=== PATIENT | male | born 1940 | race African-American/Black ===

== ENCOUNTER 2020-05-02 15:38 | Inpatient (IN) | payer MEDICARE, OTHER ==
[~2020-05-02] VITALS: Ht 180.3 cm; Wt 77.1 kg
[~2020-05-02 15:38] MED LIST: COMBIGAN EYE DRO5 ML OP; FINASTERIDE5 MG ORAL; FLOMAX0.4 MG ORAL; HYTRIN2 MG PO; LEVAQUIN500 MG ORAL; LUMIGAN2.5 ML BOTH EYES; METOPROLOL TART50 MG ORAL; PROTONIX40 MG ORAL
--- NOTE | 2020-05-02 15:43 | Emergency Room Report ---
History of Present Illness General Chief Complaint: Upper Respiratory Illness Source: Patient Present Illness HPI Disclaimer: Please note that this report is being documented using [employer] technology. This can lead to erroneous entry secondary to incorrect interpretation by the dictating instrument. HPI: 80-year-old male presents from home due to shortness of breath. He reports shortness of breath since this morning. Associated with a chronic cough. No vomiting, no diarrhea, no fever. No sick contacts. Currently lives in a skilled nursing. He has a history of hypertension and glaucoma, legally blind however is not been on medications for some time. PMH: Hypertension, glaucoma PSH: Reviewed Social Hx: Former smoker former drinker Allergies: Coded Allergies: NO KNOWN ALLERGIES (Unverified Allergy, Unknown, 10/13/15) COVID-19 Screening Contact w/high risk pt: No Experienced COVID-19 symptoms?: Yes COVID-19 Testing performed SENIOR RESEARCH MANAGER: No Patient History Reviewed Nursing Documentation: PMH: Agreed; PSxH: Agreed Nursing Documentation-PMH Hx Hypertension: Yes Hx Cancer: No Hx Gastrointestinal Problems: No Hx Neurological Problems: No Review of Systems All Other Systems: negative except mentioned in HPI Physical Exam Vital Signs Date Time Temp Pulse Resp B/P (MAP) Pulse Ox O2 Delivery O2 Flow Rate FiO2 05/02/20 15:31 97.0 89 18 185/85 (118) 98 Room Air Sp02 EP Interpretation: reviewed, normal General Appearance: well appearing, no apparent distress Head: normocephalic, atraumatic Eyes: bilateral eye PERRL, bilateral eye EOMI ENT: hearing grossly normal, moist mucus membranes Neck: full range of motion, supple Respiratory: lungs clear, normal breath sounds, no rhonchi, no respiratory distress, no retraction, no wheezing Cardiovascular #1: normal peripheral pulses, regular rate, rhythm, no murmur Gastrointestinal: non tender, soft, non-distended, no guarding Neurologic: alert, oriented x3, no focal defects Skin: normal color, warm/dry Medical Decision Making Diagnostic Impression: Primary Impression: Community acquired pneumonia Additional Impression: Uncontrolled hypertension ER Course MDM: Differential diagnosis included but not limited to CHF, pneumonia, asthma, bronchitis to name a few Clinical course-IV inserted, laboratory studies and EKG chest x-ray ordered. Chest x-ray showed possible retrocardiac infiltrate. Patient was borderline hypoxic in the ER at 93% on room air. I did give azithromycin and Rocephin. Troponin was negative. BNP mildly elevated. Patient's blood pressure elevated throughout his ER stay requiring antihypertensives. He states he has been noncompliant with medication for many years. Will admit patient to the medical floor for further treatment. Labs - Laboratory Tests Test 05/02/20 17:45 White Blood Count 12.8 K/UL (4.8-10.8) H Red Blood Count 5.41 M/UL (4.70-6.10) Hemoglobin 16.9 G/DL (14.2-18.0) Hematocrit 52.8 % (42.0-52.0) H Mean Corpuscular Volume 97 FL (80-99) Mean Corpuscular Hemoglobin 31.2 PG (27.0-31.0) H Mean Corpuscular Hemoglobin Concent 32.0 G/DL (32.0-36.0) Red Cell Distribution Width 12.7 % (11.6-14.8) Platelet Count 162 K/UL (150-450) Mean Platelet Volume 12.2 FL (6.5-10.1) H Neutrophils (%) (Auto) % (45.0-75.0) Lymphocytes (%) (Auto) % (20.0-45.0) Monocytes (%) (Auto) % (1.0-10.0) Eosinophils (%) (Auto) % (0.0-3.0) Basophils (%) (Auto) % (0.0-2.0) Differential Total Cells Counted 100 Neutrophils % (Manual) 93 % (45-75) H Lymphocytes % (Manual) 5 % (20-45) L Monocytes % (Manual) 2 % (1-10) Eosinophils % (Manual) 0 % (0-3) Basophils % (Manual) 0 % (0-2) Band Neutrophils 0 % (0-8) Platelet Estimate Adequate Platelet Morphology Normal Red Blood Cell Morphology Normal Sodium Level 140 MMOL/L (136-145) Potassium Level 4.4 MMOL/L (3.5-5.1) Chloride Level 103 MMOL/L (98-107) Carbon Dioxide Level 26 MMOL/L (21-32) Anion Gap 11 mmol/L (5-15) Blood Urea Nitrogen 10 mg/dL (7-18) Creatinine 1.3 MG/DL (0.55-1.30) Estimated Glomerular Filtration Rate > 60 mL/min (>60) Glucose Level 144 MG/DL (74-106) H Calcium Level 9.1 MG/DL (8.5-10.1) Total Bilirubin 0.5 MG/DL (0.2-1.0) Aspartate Amino Transferase (AST) 19 U/L (15-37) Alanine Aminotransferase (ALT) 22 U/L (12-78) Alkaline Phosphatase 76 U/L (46-116) Troponin I 0.000 ng/mL (0.000-0.056) Pro-B-Type Natriuretic Peptide 363 pg/mL (0-125) H Total Protein 7.9 G/DL (6.4-8.2) Albumin 4.0 G/DL (3.4-5.0) Globulin 3.9 g/dL Albumin/Globulin Ratio 1.0 (1.0-2.7) Microbiology Date/Time Source Procedure Growth Status 05/02/20 16:10 Nasopharynx SARS-CoV-2 RdRp Gene Assay - Final Complete On reevaluation: Patient in no acute distress. Plan-admission to the medical floor Rhythm Strip Diag. Results EP Interpretation: yes Rate: 105 Rhythm: other - Sinus tachycardia Chest X-Ray Diagnostic Results Chest X-Ray Diagnostic Results : Chest X-Ray Ordered: Yes # of Views/Limited/Complete: 1 View Indication: Shortness of Breath EP Interpretation: Yes Interpretation: no effusion, no pneumothorax, other - Retrocardiac infiltrate Last Vital Signs Date Time Temp Pulse Resp B/P (MAP) Pulse Ox O2 Delivery O2 Flow Rate FiO2 05/02/20 15:31 97.0 89 18 185/85 (118) 98 Room Air Status: improved Disposition: ADMITTED INPATIENT Condition: Serious Niranjan Arreola M.D. May 02, 2020 15:43
[2020-05-02 15:50] VITALS: BP 185/85
[2020-05-02] MEDS ORDERED: Nitroglycerin 2% oint pkt TOPIC ONE (16:45)
[2020-05-02 17:20] VITALS: BP 192/91
[2020-05-02] MEDS ORDERED: Azithromycin 500 MG in NS 275 ML IV ONE (17:30)
[2020-05-02] MEDS ORDERED: cefTRIAXone 1 GM in NS 55 ML IVPB ONE (17:30)
[2020-05-02 18:02] LABS: ANION GAP 11 mmol/L (5-15); BLOOD UREA NITROGEN 10 mg/dL (7-18); CALCIUM 9.1 MG/DL (8.5-10.1); CARBON DIOXIDE 26 MMOL/L (21-32); CHLORIDE 103 MMOL/L (98-107); CREATININE 1.3 MG/DL (0.55-1.30); POTASSIUM 4.4 MMOL/L (3.5-5.1); SODIUM 140 MMOL/L (136-145)
[2020-05-02 18:07] LABS: HEMATOCRIT 52.8 % (42.0-52.0); HEMOGLOBIN 16.9 G/DL (14.2-18.0); MEAN CORPUSCULAR VOLUME 97 FL (80-99); PLATELET COUNT 162 K/UL (150-450); RED BLOOD COUNT 5.41 M/UL (4.70-6.10); RED CELL DISTRIBUTION WIDTH 12.7 % (11.6-14.8); WHITE BLOOD COUNT 12.8 K/UL (4.8-10.8)
[2020-05-02 18:13] LABS: ALANINE AMINOTRANSFERASE 22 U/L (12-78); ALKALINE PHOSPHATASE 76 U/L (46-116); ASPARTATE AMINO TRANSFERASE 19 U/L (15-37); BILIRUBIN,TOTAL 0.5 MG/DL (0.2-1.0)
[2020-05-02 18:28] VITALS: BP 173/88
[2020-05-02 19:27] VITALS: BP 177/82
[2020-05-02 20:23] VITALS: BP 132/64
[2020-05-02] MEDS: Enoxaparin 40mg Inj SUBQ SCH (21:59)
--- NOTE | 2020-05-02 22:25 | History and Physical ---
History of Present Illness General Date patient seen: May 02, 2020 Time patient seen: 22:20 Reason for Hospitalization: Upper Respiratory Illness, community acquired pneumonia Present Illness HPI This is a 80 year old gentleman with a history of HTN, glaucoma, who [facility] from a [facility] with 1 day's duration of shortness of breath. The patient says he has not seen a physician in 2 years and has not taken any medications for that time either. At baseline he is independently ambulatory with a cane. He is independent with activities of daily living and no longer has a caregiver. He has been in his usual state of health until today, when he started to notice shortness of breath as well as a productive cough. He had associated fevers and chills during this time also. He otherwise denied chest pain, chest pressure, abdominal pain, nausea, vomiting, diarrhea, leg swelling, weakness, paresthesias, new vision changes. He denied travel or anyone else around him being sick. The patient then presented to the ED. There, he was noted to be afebrile and hemodynamically stable and had saturation of 93% on room air so was started on 2L NC. A chest x-ray showed possible retrocardiac infiltrate and he was started on treatment for presumed community acquired pneumonia with Azithromycin and Ceftriaxone. His BNP was mildly elevated and his EKG/troponin were reassuring for ACS. He was then admitted for further management. Allergies: Coded Allergies: NO KNOWN ALLERGIES (Unverified Allergy, Unknown, 10/13/15) COVID-19 Screening Contact w/high risk pt: No Recent Travel to affected area: No Experienced COVID-19 symptoms?: Yes COVID-19 symptoms experienced: Shortness of Breath, Cough, Flu-Like Symptoms Medication History No Active Prescriptions or Reported Meds Medications Narrative Does not take any medications for over 2 years Patient History History Provided By: Patient Healthcare decision maker Teresa Busby sister [phone] or [phone] Resuscitation status FULL CODE Advanced Directive on File Past Medical/Surgical History Past Medical/Surgical History: (1) Glaucoma (2) HTN (hypertension) Family History Family History: Patient reports no known family medical history. Social History Social History: (1) Quit smoking Review of Systems Constitutional: Reports: chills, fever, malaise Eye: Reports: other - blindness, chronic from [place] ENT: Denies: ear discharge, nose pain, nose congestion Respiratory: Reports: cough, shortness of breath, RICH, sputum; Denies: orthopnea, stridor, wheezing Cardiovascular: Denies: chest pain, edema, palpitations, syncope Gastrointestinal: Denies: abdominal pain, constipation, nausea, vomiting, melena, hematemesis Genitourinary: Denies: discharge, dysuria, frequency Musculoskeletal: Denies: gout, joint pain Skin: Denies: rash Psychiatric: Denies: anxiety Neurological: Denies: headache, numbness, paresthesia, focal weakness Endocrine: Denies: excessive sweating, intolerance to temperature, increased thirst, increased urine Hematologic/Lymphatic: Denies: blood clots, easy bleeding, easy bruising All Other Systems: negative except mentioned in HPI Physical Exam General Appearance: WD/WN, no apparent distress, alert Lines, tubes and drains: peripheral HEENT: normocephalic, atraumatic, mucous membranes moist, PERRL Neck: non-tender, normal alignment, supple, normal inspection Respiratory/Chest: chest wall non-tender, lungs clear, normal breath sounds, no respiratory distress Cardiovascular/Chest: normal peripheral pulses, normal rate, regular rhythm, no gallop/murmur, no JVD Abdomen: normal bowel sounds, non tender, soft, no mass Genitourinary/Rectal: normal genital exam Extremities: no edema Skin Exam: normal pigmentation, warm/dry Neurologic: computer repair technician II-XII grossly normal, alert, oriented x 3, responsive Last 24 Hour Vital Signs Date Time Temp Pulse Resp B/P (MAP) Pulse Ox O2 Delivery O2 Flow Rate FiO2 05/02/20 20:59 98.0 95 18 133/76 99 Nasal Cannula 2.0 05/02/20 20:23 97.6 82 20 132/64 99 Room Air 05/02/20 19:27 97.5 85 20 177/82 99 Room Air 05/02/20 19:20 176/88 05/02/20 18:28 97.2 89 19 173/88 99 Room Air 05/02/20 17:25 192/91 05/02/20 17:20 97.5 82 17 192/91 98 Room Air 05/02/20 16:58 186/89 05/02/20 15:50 89 18 Room Air 05/02/20 15:50 97.0 89 18 185/85 98 Room Air 05/02/20 15:31 97.0 89 18 185/85 (118) 98 Room Air Laboratory Tests Test 05/02/20 17:45 White Blood Count 12.8 K/UL (4.8-10.8) H Red Blood Count 5.41 M/UL (4.70-6.10) Hemoglobin 16.9 G/DL (14.2-18.0) Hematocrit 52.8 % (42.0-52.0) H Mean Corpuscular Volume 97 FL (80-99) Mean Corpuscular Hemoglobin 31.2 PG (27.0-31.0) H Mean Corpuscular Hemoglobin Concent 32.0 G/DL (32.0-36.0) Red Cell Distribution Width 12.7 % (11.6-14.8) Platelet Count 162 K/UL (150-450) Mean Platelet Volume 12.2 FL (6.5-10.1) H Neutrophils (%) (Auto) % (45.0-75.0) Lymphocytes (%) (Auto) % (20.0-45.0) Monocytes (%) (Auto) % (1.0-10.0) Eosinophils (%) (Auto) % (0.0-3.0) Basophils (%) (Auto) % (0.0-2.0) Differential Total Cells Counted 100 Neutrophils % (Manual) 93 % (45-75) H Lymphocytes % (Manual) 5 % (20-45) L Monocytes % (Manual) 2 % (1-10) Eosinophils % (Manual) 0 % (0-3) Basophils % (Manual) 0 % (0-2) Band Neutrophils 0 % (0-8) Platelet Estimate Adequate Platelet Morphology Normal Red Blood Cell Morphology Normal Sodium Level 140 MMOL/L (136-145) Potassium Level 4.4 MMOL/L (3.5-5.1) Chloride Level 103 MMOL/L (98-107) Carbon Dioxide Level 26 MMOL/L (21-32) Anion Gap 11 mmol/L (5-15) Blood Urea Nitrogen 10 mg/dL (7-18) Creatinine 1.3 MG/DL (0.55-1.30) Estimat Glomerular Filtration Rate > 60 mL/min (>60) Glucose Level 144 MG/DL (74-106) H Calcium Level 9.1 MG/DL (8.5-10.1) Total Bilirubin 0.5 MG/DL (0.2-1.0) Aspartate Amino Transf (AST/SGOT) 19 U/L (15-37) Alanine Aminotransferase (ALT/SGPT) 22 U/L (12-78) Alkaline Phosphatase 76 U/L (46-116) Troponin I 0.000 ng/mL (0.000-0.056) Pro-B-Type Natriuretic Peptide 363 pg/mL (0-125) H Total Protein 7.9 G/DL (6.4-8.2) Albumin 4.0 G/DL (3.4-5.0) Globulin 3.9 g/dL Albumin/Globulin Ratio 1.0 (1.0-2.7) Microbiology Date/Time Source Procedure Growth Status 05/02/20 16:10 Nasopharynx SARS-CoV-2 RdRp Gene Assay - Final Complete Height (Feet): 5 Height (Inches): 11.00 Weight (Pounds): 170 Medications Current Medications Medications (Trade) Dose Ordered Sig/Jose Luis Route PRN Reason Start Time Stop Time Status Last Admin Dose Admin Acetaminophen (Tylenol) 650 mg Q4H PRN ORAL Mild Pain (Pain Scale 1-3) 05/02/20 21:00 06/01/20 20:59 Azithromycin 500 mg/Dextrose 275 ml @ 275 mls/hr Q24HRS IV 05/03/20 17:00 05/09/20 17:59 Ceftriaxone Sodium 1 gm/ Dextrose 55 ml @ 110 mls/hr Q24H IVPB 05/03/20 18:00 05/10/20 17:59 Dextrose (Dextrose 50%) 25 ml Q30M PRN IV Hypoglycemia 05/02/20 21:00 07/31/20 20:59 Dextrose (Dextrose 50%) 50 ml Q30M PRN IV Hypoglycemia 05/02/20 21:00 07/31/20 20:59 Enoxaparin Sodium (Lovenox) 40 mg Q24H SUBQ 05/02/20 22:00 07/31/20 21:59 05/02/20 21:59 Assessment/Plan Problem List: (1) Chronic diastolic congestive heart failure ICD Codes: I50.32 - Chronic diastolic (congestive) heart failure SNOMED: 87991003, 257085051 (2) Community acquired pneumonia ICD Codes: J18.9 - Pneumonia, unspecified organism SNOMED: 526832462 (3) Shortness of breath ICD Codes: R06.02 - Shortness of breath SNOMED: 212973783 (4) HTN (hypertension) ICD Codes: I10 - Essential (primary) hypertension SNOMED: 17342680 (5) Glaucoma ICD Codes: H40.9 - Unspecified glaucoma SNOMED: 80776100 Status: stable Assessment/Plan: This is a 80 year old gentleman with a history of HTN, glaucoma, chronic diastolic dysfunction (seen on prior TTE) who presents with 1 day duration of shortness of breath, cough, fever #Shortness of breath #Productive cough #Community Acquired Pneumonia #Rule out COVID-19 #Fever - chest x-ray with possible retrocardial infiltrate concerning for community acquired pneumonia - Continue ceftriaxone/azithromycin (05/02- ) for pneumonia - first COVID-19 rapid test negative in ED 05/02/2020, repeat on 05/03/2020 given continued high suspicion still - check inflammatory markers and LFT for other evidence of COVID-19 infection - oxygen support - send sputum culture - follow up blood culture, send urinalysis #Chronic diastolic heart failure, has TTE suggestive of severe diastolic dysfunction - on exam, does not appear volume overloaded and chest x-ray without obvious pulmonary edema - in light of possible infection above, will hold off on diuresis at this time - repeat TTE to evaluate for changes or worsening in cardiac functioning - send TSH, lipid panel, A1c, HIV and will need Cardiology follow up as an outpatient #Glaucoma: unknown prior meds, off meds for 2 years - symptoms stable, will need outpatient follow up #HTN: poorly controlled as off of medications for 2 years - hydralazine PRN - will consider initiating anti-HTN, may depend on evaluation of other comorbidities as above (such as SHUN or ARB if evidence of t2dm, etc.) #Limited resources - patient living at [facility], but has no transportation and has no access to healthcare - will have PT evaluation - will consult case management to assist with obtaining transportation services and obtaining a primary care provider to work with his insurance/transportation , this will be crucial prior to discharge #Dispo: This patient is a 80 year old man with poor medical follow up who presents with dyspnea concerning for possible pneumonia as well as COVID-19 infection. He will need at least 2 midnights inpatient as he is of very high risk of respiratory decompensation especially given poor outpatient follow up I spent over 75 minutes on this case with over 50% of the case counseling with the patient. I also coordinated with Primary Teacher Dr. Alicia and nursing staff /ED. I also spent 30 minutes reviewing his prior imaging and records here. Lukasz Alexis M.D. May 02, 2020 22:25
--- NOTE | 2020-05-02 22:40 | General Progress Note ---
Advance Care Planning Advance Care Planning Advance Care Planning [facility] An independent Hospitalist group, where every patient is our [facility] Internal Medicine Hospitalist Advanced Care Planning Note Please contact us at Date of Discussion: A [id number] discussion with the patient regarding the patient's advanced care planning took place during this hospitalization on the above date. The discussion included the explanation and discussion of advance directives and associated forms/documents, as well as the patient's current code status. We also discussed at length the patient's medical conditions (both acute and chronic), general prognosis, treatment options, and goals of care. The following summarizes the discussion: Advance Care Planning/Goals of Care: - Will attempt to fill out an AD and/or POLST with the patient prior to discharge, if not already completed - Continue current evaluation and management of any acute and chronic medical issues - Will continue to support the patient/family - Will continue to discuss both short- and long-term goals of care DPOA-HC/Surrogate Decision Maker: Sister Teresa Busby : he reports her number is [phone] or [phone]. Will call to confirm in the morning Code Status: Full Code as discussed thoroughly with patient Advanced Care Planning Forms/Documents Completed: Deferred until later encounter/visit, once confirmed with sister A total of 62 minutes was spent on this discussion, including counseling, answering questions, and completing, if any, pertinent advanced care planning forms/documents. Time of note may not reflect time of encounter. Lukasz Alexis M.D. May 02, 2020 22:40
[2020-05-02 22:52] LABS: APPEARANCE,URINE CLEAR; BILIRUBIN, URINE NEGATIVE (NEGATIVE); COLOR,URINE PALE YELLOW; GLUCOSE, URINE (UA) 1+ (NEGATIVE); KETONES,URINE NEGATIVE (NEGATIVE); LEUKOCYTE ESTERASE ,URINE 1+ (NEGATIVE); NITRITE,URINE NEGATIVE (NEGATIVE); PH,URINE 8 (4.5-8.0); PROTEIN,URINE 1+ (NEGATIVE); UROBILINOGEN,URINE NORMAL MG/DL (0.0-1.0)
[2020-05-03] VITALS (7 sets, daily range): BP systolic 136–186; BP diastolic 68–95
[2020-05-03 05:55] LABS: ALANINE AMINOTRANSFERASE 19 U/L (12-78); ALBUMIN 3.6 G/DL (3.4-5.0); ALBUMIN/GLOBULIN RATIO 0.9 (1.0-2.7); ALKALINE PHOSPHATASE 67 U/L (46-116); ANION GAP 10 mmol/L (5-15); ASPARTATE AMINO TRANSFERASE 23 U/L (15-37); BILIRUBIN,TOTAL 0.5 MG/DL (0.2-1.0); BLOOD UREA NITROGEN 10 mg/dL (7-18); CALCIUM 8.8 MG/DL (8.5-10.1); CARBON DIOXIDE 26 MMOL/L (21-32); CHLORIDE 103 MMOL/L (98-107); CHOLESTEROL 132 MG/DL (< 200); CREATININE 1.1 MG/DL (0.55-1.30); HDL CHOLESTEROL 56 MG/DL (40-60); POTASSIUM 3.9 MMOL/L (3.5-5.1); SODIUM 139 MMOL/L (136-145); TRIGLYCERIDES 50 MG/DL (30-150)
[2020-05-03 07:38] LABS: HEMATOCRIT 49.8 % (42.0-52.0); HEMOGLOBIN 16.6 G/DL (14.2-18.0); MEAN CORPUSCULAR VOLUME 97 FL (80-99); PLATELET COUNT 166 K/UL (150-450); RED BLOOD COUNT 5.14 M/UL (4.70-6.10); RED CELL DISTRIBUTION WIDTH 12.2 % (11.6-14.8); WHITE BLOOD COUNT 18.6 K/UL (4.8-10.8)
--- NOTE | 2020-05-03 08:19 | Consultation ---
History of Present Illness General Chief Complaint: Upper Respiratory Illness Present Illness Allergies: Coded Allergies: NO KNOWN ALLERGIES (Unverified Allergy, Unknown, 10/13/15) Medication History No Active Prescriptions or Reported Meds Patient History Healthcare decision maker Resuscitation status Advanced Directive on File Physical Exam Last 24 Hour Vital Signs Date Time Temp Pulse Resp B/P (MAP) Pulse Ox O2 Delivery O2 Flow Rate FiO2 05/03/20 04:00 98.6 84 20 140/68 (92) 93 05/03/20 00:00 97.9 100 18 151/84 (106) 94 05/02/20 21:05 Nasal Cannula 2.0 05/02/20 20:59 98.0 95 18 133/76 99 Nasal Cannula 2.0 05/02/20 20:23 97.6 82 20 132/64 99 Room Air 05/02/20 19:27 97.5 85 20 177/82 99 Room Air 05/02/20 19:20 176/88 05/02/20 18:28 97.2 89 19 173/88 99 Room Air 05/02/20 17:25 192/91 05/02/20 17:20 97.5 82 17 192/91 98 Room Air 05/02/20 16:58 186/89 05/02/20 15:50 89 18 Room Air 05/02/20 15:50 97.0 89 18 185/85 98 Room Air 05/02/20 15:31 97.0 89 18 185/85 (118) 98 Room Air Intake and Output 05/02/20 05/03/20 19:00 07:00 Intake Total 360 ml Output Total 1250 ml Balance -890 ml Intake Oral 360 ml Output Urine Total 1250 ml # Voids 2 Laboratory Tests Test 05/02/20 17:45 05/02/20 22:47 05/03/20 04:00 05/03/20 07:10 White Blood Count 12.8 K/UL (4.8-10.8) H 18.6 K/UL (4.8-10.8) H Red Blood Count 5.41 M/UL (4.70-6.10) 5.14 M/UL (4.70-6.10) Hemoglobin 16.9 G/DL (14.2-18.0) 16.6 G/DL (14.2-18.0) Hematocrit 52.8 % (42.0-52.0) H 49.8 % (42.0-52.0) Mean Corpuscular Volume 97 FL (80-99) 97 FL (80-99) Mean Corpuscular Hemoglobin 31.2 PG (27.0-31.0) H 32.4 PG (27.0-31.0) H Mean Corpuscular Hemoglobin Concent 32.0 G/DL (32.0-36.0) 33.4 G/DL (32.0-36.0) Red Cell Distribution Width 12.7 % (11.6-14.8) 12.2 % (11.6-14.8) Platelet Count 162 K/UL (150-450) 166 K/UL (150-450) Mean Platelet Volume 12.2 FL (6.5-10.1) H 10.8 FL (6.5-10.1) H Neutrophils (%) (Auto) % (45.0-75.0) % (45.0-75.0) Lymphocytes (%) (Auto) % (20.0-45.0) % (20.0-45.0) Monocytes (%) (Auto) % (1.0-10.0) % (1.0-10.0) Eosinophils (%) (Auto) % (0.0-3.0) % (0.0-3.0) Basophils (%) (Auto) % (0.0-2.0) % (0.0-2.0) Differential Total Cells Counted 100 Neutrophils % (Manual) 93 % (45-75) H Pending Lymphocytes % (Manual) 5 % (20-45) L Pending Monocytes % (Manual) 2 % (1-10) Eosinophils % (Manual) 0 % (0-3) Basophils % (Manual) 0 % (0-2) Band Neutrophils 0 % (0-8) Platelet Estimate Adequate Pending Platelet Morphology Normal Pending Red Blood Cell Morphology Normal Sodium Level 140 MMOL/L (136-145) 139 MMOL/L (136-145) Potassium Level 4.4 MMOL/L (3.5-5.1) 3.9 MMOL/L (3.5-5.1) Chloride Level 103 MMOL/L (98-107) 103 MMOL/L (98-107) Carbon Dioxide Level 26 MMOL/L (21-32) 26 MMOL/L (21-32) Anion Gap 11 mmol/L (5-15) 10 mmol/L (5-15) Blood Urea Nitrogen 10 mg/dL (7-18) 10 mg/dL (7-18) Creatinine 1.3 MG/DL (0.55-1.30) 1.1 MG/DL (0.55-1.30) Estimat Glomerular Filtration Rate > 60 mL/min (>60) > 60 mL/min (>60) Glucose Level 144 MG/DL (74-106) H 106 MG/DL (74-106) Calcium Level 9.1 MG/DL (8.5-10.1) 8.8 MG/DL (8.5-10.1) Total Bilirubin 0.5 MG/DL (0.2-1.0) 0.5 MG/DL (0.2-1.0) Aspartate Amino Transf (AST/SGOT) 19 U/L (15-37) 23 U/L (15-37) Alanine Aminotransferase (ALT/SGPT) 22 U/L (12-78) 19 U/L (12-78) Alkaline Phosphatase 76 U/L (46-116) 67 U/L (46-116) Troponin I 0.000 ng/mL (0.000-0.056) Pro-B-Type Natriuretic Peptide 363 pg/mL (0-125) H Total Protein 7.9 G/DL (6.4-8.2) 7.8 G/DL (6.4-8.2) Albumin 4.0 G/DL (3.4-5.0) 3.6 G/DL (3.4-5.0) Globulin 3.9 g/dL 4.2 g/dL Albumin/Globulin Ratio 1.0 (1.0-2.7) 0.9 (1.0-2.7) L Urine Color Pale yellow Urine Appearance Clear Urine pH 8 (4.5-8.0) Urine Specific [place] 1.010 (1.005-1.035) Urine Protein 1+ (NEGATIVE) H Urine Glucose (UA) 1+ (NEGATIVE) H Urine Ketones Negative (NEGATIVE) Urine Blood Negative (NEGATIVE) Urine Nitrite Negative (NEGATIVE) Urine Bilirubin Negative (NEGATIVE) Urine Urobilinogen Normal MG/DL (0.0-1.0) Urine Leukocyte Esterase 1+ (NEGATIVE) H Urine RBC 0-2 /HPF (0 - 0) H Urine WBC 2-4 /HPF (0 - 0) Urine Squamous Epithelial Cells None /LPF (NONE/OCC) Urine Bacteria Few /HPF (NONE) Hemoglobin A1c 5.7 % (4.3-6.0) Magnesium Level 1.6 MG/DL (1.8-2.4) L Triglycerides Level 50 MG/DL (30-150) Cholesterol Level 132 MG/DL (< 200) LDL Cholesterol 65 mg/dL (<100) HDL Cholesterol 56 MG/DL (40-60) Cholesterol/HDL Ratio 2.4 (3.3-4.4) L Thyroid Stimulating Hormone (TSH) 1.070 uiU/mL (0.358-3.740) HIV (1&2) Antibody Rapid Negative (NEGATIVE) Microbiology Date/Time Source Procedure Growth Status 05/02/20 22:52 Sputum Gram Stain - Final Resulted 05/02/20 22:52 Sputum Sputum Culture Pending Resulted 05/02/20 16:10 Nasopharynx SARS-CoV-2 RdRp Gene Assay - Final Complete Height (Feet): 5 Height (Inches): 11.00 Weight (Pounds): 170 Medications Current Medications Medications (Trade) Dose Ordered Sig/Jose Luis Route PRN Reason Start Time Stop Time Status Last Admin Dose Admin Acetaminophen (Tylenol) 650 mg Q4H PRN ORAL Mild Pain (Pain Scale 1-3) 05/02/20 21:00 06/01/20 20:59 Azithromycin 500 mg/Dextrose 275 ml @ 275 mls/hr Q24HRS IV 05/03/20 17:00 05/09/20 17:59 Ceftriaxone Sodium 1 gm/ Dextrose 55 ml @ 110 mls/hr Q24H IVPB 05/03/20 18:00 05/10/20 17:59 Dextrose (Dextrose 50%) 25 ml Q30M PRN IV Hypoglycemia 05/02/20 21:00 07/31/20 20:59 Dextrose (Dextrose 50%) 50 ml Q30M PRN IV Hypoglycemia 05/02/20 21:00 07/31/20 20:59 Enoxaparin Sodium (Lovenox) 40 mg Q24H SUBQ 05/02/20 22:00 07/31/20 21:59 05/02/20 21:59 Magnesium Sulfate 100 ml @ 100 mls/hr Q1H IVPB 05/03/20 09:00 05/03/20 10:59 Jeannine Payne MANAGER NUCLEAR May 03, 2020 08:19
[2020-05-03] MEDS ORDERED: Albuterol/Ipratropium 3ml neb HHN PRN (09:00)
--- NOTE | 2020-05-03 09:00 | Consultation ---
History of Present Illness General Date patient seen: May 03, 2020 Time patient seen: 07:30 Chief Complaint: Upper Respiratory Illness Referring physician: Dr Fletcher Reason for Consultation: PNA Present Illness HPI 80 years old male from [facility] with past medical history of hypertension, glaucoma, legally blind, former smoker, sent for evaluation due to shortness of breath for 1 day. Patient also reported chronic cough. No fever or chills reported. No vomiting or diarrhea. No sick contacts. Upon evaluation patient was afebrile, blood pressure was significantly elevated 185/85, pulse oximetry was 98% on room air. Laboratory work-up revealed leukocytosis WBC 12.8, hemoglobin 16.9, hematocrit 52.8 platelet count 162. Lymphocytes 25%. Stable electrolytes. BUN 10, creatinine 1.3. Glucose 144. Stable LFT. Albumin 4.0. Troponin negative pro BNP 363. EKG revealed sinus tachycardia with heart rate 105 . Chest x-ray revealed retrocardiac infiltrate. In emergency department patient received empiric ceftriaxone and azithromycin, 1 L of fluid given hydralazine and admitted to [facility] floor for further management. This am WBC up to 18. No fevers. Pulse ox stable on o2 via NC Patient reports not feeling well, sweats, gen weakness, occasional SOB Allergies: Coded Allergies: NO KNOWN ALLERGIES (Unverified Allergy, Unknown, 10/13/15) Medication History No Active Prescriptions or Reported Meds Patient History Healthcare decision maker Resuscitation status Full code Advanced Directive on File Past Medical/Surgical History Past Medical/Surgical History: (1) HTN (hypertension) (2) Glaucoma (3) Prostatomegaly Review of Systems Constitutional: Reports: weakness Eye: Reports: other - glaucoma, legally blind Respiratory: Reports: other - SOB, former smoker Cardiovascular: Reports: other - hx of HTN, was not on pills for few months Gastrointestinal: Reports: no symptoms Genitourinary: Reports: other - hx of enlarged prostate Musculoskeletal: Reports: no symptoms Skin: Reports: no symptoms Psychiatric: Reports: no symptoms Neurological: Reports: no symptoms Endocrine: Reports: no symptoms Hematologic/Lymphatic: Reports: no symptoms Physical Exam General Appearance: no apparent distress, alert Lines, tubes and drains: peripheral HEENT: normocephalic, atraumatic, other - legally blind, Neck: non-tender, supple Respiratory/Chest: chest wall non-tender, lungs clear - with moderate air exchange , no respiratory distress, no accessory muscle use Cardiovascular/Chest: normal rate Abdomen: normal bowel sounds, non tender, soft Extremities: normal range of motion, non-tender, no calf tenderness, normal capillary refill Skin Exam: warm/dry Neurologic: alert, responsive Musculoskeletal: normal muscle bulk Last 24 Hour Vital Signs Date Time Temp Pulse Resp B/P (MAP) Pulse Ox O2 Delivery O2 Flow Rate FiO2 05/03/20 04:00 98.6 84 20 140/68 (92) 93 05/03/20 00:00 97.9 100 18 151/84 (106) 94 05/02/20 21:05 Nasal Cannula 2.0 05/02/20 20:59 98.0 95 18 133/76 99 Nasal Cannula 2.0 05/02/20 20:23 97.6 82 20 132/64 99 Room Air 05/02/20 19:27 97.5 85 20 177/82 99 Room Air 05/02/20 19:20 176/88 05/02/20 18:28 97.2 89 19 173/88 99 Room Air 05/02/20 17:25 192/91 05/02/20 17:20 97.5 82 17 192/91 98 Room Air 05/02/20 16:58 186/89 05/02/20 15:50 89 18 Room Air 05/02/20 15:50 97.0 89 18 185/85 98 Room Air 05/02/20 15:31 97.0 89 18 185/85 (118) 98 Room Air Intake and Output 05/02/20 05/03/20 19:00 07:00 Intake Total 360 ml Output Total 1250 ml Balance -890 ml Intake Oral 360 ml Output Urine Total 1250 ml # Voids 2 Laboratory Tests Test 05/02/20 17:45 05/02/20 22:47 05/03/20 04:00 05/03/20 07:10 White Blood Count 12.8 K/UL (4.8-10.8) H 18.6 K/UL (4.8-10.8) H Red Blood Count 5.41 M/UL (4.70-6.10) 5.14 M/UL (4.70-6.10) Hemoglobin 16.9 G/DL (14.2-18.0) 16.6 G/DL (14.2-18.0) Hematocrit 52.8 % (42.0-52.0) H 49.8 % (42.0-52.0) Mean Corpuscular Volume 97 FL (80-99) 97 FL (80-99) Mean Corpuscular Hemoglobin 31.2 PG (27.0-31.0) H 32.4 PG (27.0-31.0) H Mean Corpuscular Hemoglobin Concent 32.0 G/DL (32.0-36.0) 33.4 G/DL (32.0-36.0) Red Cell Distribution Width 12.7 % (11.6-14.8) 12.2 % (11.6-14.8) Platelet Count 162 K/UL (150-450) 166 K/UL (150-450) Mean Platelet Volume 12.2 FL (6.5-10.1) H 10.8 FL (6.5-10.1) H Neutrophils (%) (Auto) % (45.0-75.0) % (45.0-75.0) Lymphocytes (%) (Auto) % (20.0-45.0) % (20.0-45.0) Monocytes (%) (Auto) % (1.0-10.0) % (1.0-10.0) Eosinophils (%) (Auto) % (0.0-3.0) % (0.0-3.0) Basophils (%) (Auto) % (0.0-2.0) % (0.0-2.0) Differential Total Cells Counted 100 100 Neutrophils % (Manual) 93 % (45-75) H 83 % (45-75) H Lymphocytes % (Manual) 5 % (20-45) L 10 % (20-45) L Monocytes % (Manual) 2 % (1-10) 7 % (1-10) Eosinophils % (Manual) 0 % (0-3) 0 % (0-3) Basophils % (Manual) 0 % (0-2) 0 % (0-2) Band Neutrophils 0 % (0-8) 0 % (0-8) Platelet Estimate Adequate Adequate Platelet Morphology Normal Normal Red Blood Cell Morphology Normal Normal Sodium Level 140 MMOL/L (136-145) 139 MMOL/L (136-145) Potassium Level 4.4 MMOL/L (3.5-5.1) 3.9 MMOL/L (3.5-5.1) Chloride Level 103 MMOL/L (98-107) 103 MMOL/L (98-107) Carbon Dioxide Level 26 MMOL/L (21-32) 26 MMOL/L (21-32) Anion Gap 11 mmol/L (5-15) 10 mmol/L (5-15) Blood Urea Nitrogen 10 mg/dL (7-18) 10 mg/dL (7-18) Creatinine 1.3 MG/DL (0.55-1.30) 1.1 MG/DL (0.55-1.30) Estimat Glomerular Filtration Rate > 60 mL/min (>60) > 60 mL/min (>60) Glucose Level 144 MG/DL (74-106) H 106 MG/DL (74-106) Calcium Level 9.1 MG/DL (8.5-10.1) 8.8 MG/DL (8.5-10.1) Total Bilirubin 0.5 MG/DL (0.2-1.0) 0.5 MG/DL (0.2-1.0) Aspartate Amino Transf (AST/SGOT) 19 U/L (15-37) 23 U/L (15-37) Alanine Aminotransferase (ALT/SGPT) 22 U/L (12-78) 19 U/L (12-78) Alkaline Phosphatase 76 U/L (46-116) 67 U/L (46-116) Troponin I 0.000 ng/mL (0.000-0.056) Pro-B-Type Natriuretic Peptide 363 pg/mL (0-125) H Total Protein 7.9 G/DL (6.4-8.2) 7.8 G/DL (6.4-8.2) Albumin 4.0 G/DL (3.4-5.0) 3.6 G/DL (3.4-5.0) Globulin 3.9 g/dL 4.2 g/dL Albumin/Globulin Ratio 1.0 (1.0-2.7) 0.9 (1.0-2.7) L Urine Color Pale yellow Urine Appearance Clear Urine pH 8 (4.5-8.0) Urine Specific [place] 1.010 (1.005-1.035) Urine Protein 1+ (NEGATIVE) H Urine Glucose (UA) 1+ (NEGATIVE) H Urine Ketones Negative (NEGATIVE) Urine Blood Negative (NEGATIVE) Urine Nitrite Negative (NEGATIVE) Urine Bilirubin Negative (NEGATIVE) Urine Urobilinogen Normal MG/DL (0.0-1.0) Urine Leukocyte Esterase 1+ (NEGATIVE) H Urine RBC 0-2 /HPF (0 - 0) H Urine WBC 2-4 /HPF (0 - 0) Urine Squamous Epithelial Cells None /LPF (NONE/OCC) Urine Bacteria Few /HPF (NONE) Hemoglobin A1c 5.7 % (4.3-6.0) Magnesium Level 1.6 MG/DL (1.8-2.4) L Triglycerides Level 50 MG/DL (30-150) Cholesterol Level 132 MG/DL (< 200) LDL Cholesterol 65 mg/dL (<100) HDL Cholesterol 56 MG/DL (40-60) Cholesterol/HDL Ratio 2.4 (3.3-4.4) L Thyroid Stimulating Hormone (TSH) 1.070 uiU/mL (0.358-3.740) HIV (1&2) Antibody Rapid Negative (NEGATIVE) Microbiology Date/Time Source Procedure Growth Status 05/02/20 22:52 Sputum Gram Stain - Final Resulted 05/02/20 22:52 Sputum Sputum Culture Pending Resulted 05/02/20 16:10 Nasopharynx SARS-CoV-2 RdRp Gene Assay - Final Complete Height (Feet): 5 Height (Inches): 11.00 Weight (Pounds): 170 Medications Current Medications Medications (Trade) Dose Ordered Sig/Jose Luis Route PRN Reason Start Time Stop Time Status Last Admin Dose Admin Acetaminophen (Tylenol) 650 mg Q4H PRN ORAL Mild Pain (Pain Scale 1-3) 05/02/20 21:00 06/01/20 20:59 Dextrose (Dextrose 50%) 25 ml Q30M PRN IV Hypoglycemia 05/02/20 21:00 07/31/20 20:59 Dextrose (Dextrose 50%) 50 ml Q30M PRN IV Hypoglycemia 05/02/20 21:00 07/31/20 20:59 Enoxaparin Sodium (Lovenox) 40 mg Q24H SUBQ 05/02/20 22:00 07/31/20 21:59 05/02/20 21:59 Magnesium Sulfate 100 ml @ 100 mls/hr Q1H IVPB 05/03/20 09:00 05/03/20 10:59 Piperacillin Sod/ Tazobactam Sod 3.375 gm/Sodium Chloride 110 ml @ 27.5 mls/hr Q8H IVPB 05/03/20 09:30 05/10/20 09:29 Assessment/Plan Assessment/Plan: ASSESSMENT Pneumonia CAP versus aspiration Shortness of breath Chronic diastolic CHF Hypertension with initial hypertensive urgency Suspected COVID-19 Former smoker Legally blind PLAN of CARE [facility] floor O2 titrate to keep sta above 90% Pulm toilet SCX if able Rapid COVID NGT repeat COVID given symptomatology and exposure to many people in [facility] given rising leuk, will stop ceftriaxone and Azithromycin and change to Zosyn, will get swallow eval in am , possibly aspiration? given being legally blind fup with CXR ID consult pending venous Duplex BLE DVT prophylaxis ECHO troponin NGT monitor volumes BP management, probably will need routine anti-HTN to keep BP under control supportive care PT eval and Rx thank you for a consult case discussed and evaluated by supervising physician Jeannine Payne NP May 03, 2020 09:00
--- NOTE | 2020-05-03 11:16 | General Progress Note ---
Assessment/Plan Problem List: (1) Chronic diastolic congestive heart failure ICD Codes: I50.32 - Chronic diastolic (congestive) heart failure SNOMED: 98711776, 331010306 (2) Community acquired pneumonia ICD Codes: J18.9 - Pneumonia, unspecified organism SNOMED: 810740897 (3) Shortness of breath ICD Codes: R06.02 - Shortness of breath SNOMED: 492065461 (4) HTN (hypertension) ICD Codes: I10 - Essential (primary) hypertension SNOMED: 48306356 (5) Glaucoma ICD Codes: H40.9 - Unspecified glaucoma SNOMED: 34676451 Status: stable Assessment/Plan: This is a 80 year old gentleman with a history of HTN, glaucoma, chronic diastolic dysfunction (seen on prior TTE) who presents with 1 day duration of shortness of breath, cough, fever #Shortness of breath #Productive cough #Community Acquired Pneumonia #Rule out COVID-19 #Leukocytosis #Fever - chest x-ray with possible retrocardial infiltrate concerning for community acquired pneumonia - Pulmonology Dr. Alicia following, appreciate recommendations - s/p ceftriaxone/azithromycin (05/02-05/03 ) for pneumonia. Changed to Zosyn ( - ) by Pulmonology given increasing leukocytosis - will consult ID Dr. Payne for recommendations given worsening leukocytosis despite antibiotic therapy - first COVID-19 rapid test negative in ED 05/02/2020, repeat on 05/03/2020 given continued high suspicion still - check inflammatory markers and LFT for other evidence of COVID-19 infection - DVT US ordered by Pulmonology, will follow up results - Swallow eval ordered by Pulmonology to rule out chronic aspiration, will follow up results - oxygen support - follow up final sputum culture - follow up blood culture #Chronic diastolic heart failure, has old TTE suggestive of severe diastolic dysfunction - on exam, does not appear volume overloaded and chest x-ray without obvious pulmonary edema - in light of possible infection above, will hold off on diuresis at this time - repeat TTE to evaluate for changes or worsening in cardiac functioning - follow up TSH, lipid panel, A1c, HIV and will need Cardiology follow up as an outpatient #Glaucoma: unknown prior meds, off meds for 2 years. blind at baseline - symptoms stable, will need outpatient follow up #HTN: poorly controlled as off of medications for 2 years - hydralazine PRN - will consider initiating anti-HTN, may depend on evaluation of other comorbidities as above (such as SHUN or ARB if evidence of t2dm, etc.) #Limited resources - [facility] [place] [facility] [place], but has no transportation and has no access to healthcare - will have PT evaluation - will consult case management to assist with obtaining transportation services and obtaining a primary care provider to work with his insurance/transportation , this will be crucial prior to discharge #Dispo: pending resolution of pneumonia, shortness of breath, anticipate 2-3 more days I spent over 40 minutes on this case with over 50% of the case counseling with the patient including assisting to feed him. I also coordinated with Pediatric Clinical Nurse Specialist Dr. Alicia, ID Dr. Payne and nursing staff Subjective Date patient seen: May 03, 2020 Time patient seen: 11:11 Constitutional: Reports: fever; Denies: diaphoresis HEENT: Reports: other - chronic blindness from glaucoma unchanged; Denies: eye pain, mouth pain Cardiovascular: Denies: chest pain, edema, irregular heart rate, lightheadedness Respiratory: Reports: cough, shortness of breath; Denies: orthopnea Gastrointestinal/Abdominal: Denies: abdomen distended, abdominal pain, nausea, vomiting Genitourinary: Denies: burning, discharge Neurologic/Psychiatric: Denies: anxiety, depressed Endocrine: Denies: intolerance to cold, intolerance to heat, increased hunger Hematologic/Lymphatic: Denies: anemia, easy bleeding, easy bruising Allergies: Coded Allergies: NO KNOWN ALLERGIES (Unverified Allergy, Unknown, 10/13/15) All Systems: reviewed and negative except above Subjective patient reports that he is feeling better in terms of shortness of breath, lessening fevers, and improving cough. he requested help to eat as he is blind. food appears to be off to the side of him and he was unaware anyone brought him food Objective Last 24 Hour Vital Signs Date Time Temp Pulse Resp B/P (MAP) Pulse Ox O2 Delivery O2 Flow Rate FiO2 05/03/20 08:00 98.6 98 18 141/89 (106) 93 05/03/20 04:00 98.6 84 20 140/68 (92) 93 05/03/20 00:00 97.9 100 18 151/84 (106) 94 05/02/20 21:05 Nasal Cannula 2.0 05/02/20 20:59 98.0 95 18 133/76 99 Nasal Cannula 2.0 05/02/20 20:23 97.6 82 20 132/64 99 Room Air 05/02/20 19:27 97.5 85 20 177/82 99 Room Air 05/02/20 19:20 176/88 05/02/20 18:28 97.2 89 19 173/88 99 Room Air 05/02/20 17:25 192/91 05/02/20 17:20 97.5 82 17 192/91 98 Room Air 05/02/20 16:58 186/89 05/02/20 15:50 89 18 Room Air 05/02/20 15:50 97.0 89 18 185/85 98 Room Air 05/02/20 15:31 97.0 89 18 185/85 (118) 98 Room Air Intake and Output 05/02/20 05/03/20 18:59 06:59 Intake Total 360 ml Output Total 1250 ml Balance -890 ml Intake Oral 360 ml Output Urine Total 1250 ml # Voids 2 Laboratory Tests 05/02/20 17:45: White Blood Count 12.8H, Red Blood Count 5.41, Hemoglobin 16.9, Hematocrit 52.8H , Mean Corpuscular Volume 97, Mean Corpuscular Hemoglobin 31.2H, Mean Corpuscular Hemoglobin Concent 32.0, Red Cell Distribution Width 12.7, Platelet Count 162, Mean Platelet Volume 12.2H, Neutrophils (%) (Auto) , Lymphocytes (%) (Auto) , Monocytes (%) (Auto) , Eosinophils (%) (Auto) , Basophils (%) (Auto) , Differential Total Cells Counted 100, Neutrophils % (Manual) 93H, Lymphocytes % (Manual) 5L, Monocytes % (Manual) 2, Eosinophils % (Manual) 0, Basophils % ( Manual) 0, Band Neutrophils 0, Platelet Estimate Adequate, Platelet Morphology Normal, Red Blood Cell Morphology Normal, Sodium Level 140, Potassium Level 4.4 , Chloride Level 103, Carbon Dioxide Level 26, Anion Gap 11, Blood Urea Nitrogen 10, Creatinine 1.3, Estimat Glomerular Filtration Rate > 60, Glucose Level 144H, Calcium Level 9.1, Total Bilirubin 0.5, Aspartate Amino Transf (AST/ SGOT) 19, Alanine Aminotransferase (ALT/SGPT) 22, Alkaline Phosphatase 76, Troponin I 0.000, Pro-B-Type Natriuretic Peptide 363H, Total Protein 7.9, Albumin 4.0, Globulin 3.9, Albumin/Globulin Ratio 1.0 05/02/20 22:47: Urine Color Pale yellow, Urine Appearance Clear, Urine pH 8, Urine Specific [place] 1.010, Urine Protein 1+H, Urine Glucose (UA) 1+H, Urine Ketones Negative , Urine Blood Negative, Urine Nitrite Negative, Urine Bilirubin Negative, Urine Urobilinogen Normal, Urine Leukocyte Esterase 1+H, Urine RBC 0-2H, Urine WBC 2-4 , Urine Squamous Epithelial Cells None, Urine Bacteria Few 05/03/20 04:00: Sodium Level 139, Potassium Level 3.9, Chloride Level 103, Carbon Dioxide Level 26, Anion Gap 10, Blood Urea Nitrogen 10, Creatinine 1.1, Estimat Glomerular Filtration Rate > 60, Glucose Level 106, Calcium Level 8.8, Total Bilirubin 0.5 , Aspartate Amino Transf (AST/SGOT) 23, Alanine Aminotransferase (ALT/SGPT) 19, Alkaline Phosphatase 67, Total Protein 7.8, Albumin 3.6, Globulin 4.2, Albumin/ Globulin Ratio 0.9L, Hemoglobin A1c 5.7, Magnesium Level 1.6L, Triglycerides Level 50, Cholesterol Level 132, LDL Cholesterol 65, HDL Cholesterol 56, Cholesterol/HDL Ratio 2.4L, Thyroid Stimulating Hormone (TSH) 1.070, HIV (1&2) Antibody Rapid Negative 05/03/20 07:10: White Blood Count 18.6H, Red Blood Count 5.14, Hemoglobin 16.6, Hematocrit 49.8 , Mean Corpuscular Volume 97, Mean Corpuscular Hemoglobin 32.4H, Mean Corpuscular Hemoglobin Concent 33.4, Red Cell Distribution Width 12.2, Platelet Count 166, Mean Platelet Volume 10.8H, Neutrophils (%) (Auto) , Lymphocytes (%) (Auto) , Monocytes (%) (Auto) , Eosinophils (%) (Auto) , Basophils (%) (Auto) , Differential Total Cells Counted 100, Neutrophils % (Manual) 83H, Lymphocytes % (Manual) 10L, Monocytes % (Manual) 7, Eosinophils % (Manual) 0, Basophils % ( Manual) 0, Band Neutrophils 0, Platelet Estimate Adequate, Platelet Morphology Normal, Red Blood Cell Morphology Normal Height (Feet): 5 Height (Inches): 11.00 Weight (Pounds): 170 General Appearance: WD/WN, no apparent distress, alert EENT: PERRL/EOMI, normal ENT inspection, pharynx normal Neck: non-tender, normal alignment, supple, normal inspection Cardiovascular: normal peripheral pulses, regular rhythm, no gallop/murmur, no JVD Respiratory/Chest: chest wall non-tender, no respiratory distress, decreased breath sounds Abdomen: normal bowel sounds, non tender, soft, no mass Pelvis: no active bleeding Extremities: normal range of motion, no calf tenderness Edema: no edema noted Arm (L), no edema noted Arm (R), no edema noted Leg (L), no edema noted Leg (R), no edema noted Pedal (L), no edema noted Pedal (R) Neurologic: no motor/sensory deficits, alert, oriented x 3, responsive, normal mood/affect Skin: normal pigmentation, warm/dry Lukasz Alexis M.D. May 03, 2020 11:15
[2020-05-03] MEDS ORDERED: Azithromycin 500 MG in D5W 275 ML IV SCH ×2 (11:30→17:00)
[2020-05-03] MEDS: Piperacillin/Tazobactam 3.375 GM in NS 110 ML IVPB SCH ×2 (12:25→17:39)
--- NOTE | 2020-05-03 13:38 | Infectious Diseases Prog Note ---
Assessment/Plan Assessment/Plan Full consult dictated: pneumonia, sepsis, leukocytosis pmh noted allergies - nkda zosyn and azithromycin f/u on cultures monitor labs and chest x-ray thank you Subjective Allergies: Coded Allergies: NO KNOWN ALLERGIES (Unverified Allergy, Unknown, 10/13/15) Objective Last 24 Hour Vital Signs Date Time Temp Pulse Resp B/P (MAP) Pulse Ox O2 Delivery O2 Flow Rate FiO2 05/03/20 12:00 98.1 89 19 136/80 (98) 98 05/03/20 08:00 98.6 98 18 141/89 (106) 93 05/03/20 04:00 98.6 84 20 140/68 (92) 93 05/03/20 00:00 97.9 100 18 151/84 (106) 94 05/02/20 21:05 Nasal Cannula 2.0 05/02/20 20:59 98.0 95 18 133/76 99 Nasal Cannula 2.0 05/02/20 20:23 97.6 82 20 132/64 99 Room Air 05/02/20 19:27 97.5 85 20 177/82 99 Room Air 05/02/20 19:20 176/88 05/02/20 18:28 97.2 89 19 173/88 99 Room Air 05/02/20 17:25 192/91 05/02/20 17:20 97.5 82 17 192/91 98 Room Air 05/02/20 16:58 186/89 05/02/20 15:50 89 18 Room Air 05/02/20 15:50 97.0 89 18 185/85 98 Room Air 05/02/20 15:31 97.0 89 18 185/85 (118) 98 Room Air Height (Feet): 5 Height (Inches): 11.00 Weight (Pounds): 170 Microbiology Date/Time Source Procedure Growth Status 05/02/20 22:52 Sputum Gram Stain - Final Resulted 05/02/20 22:52 Sputum Sputum Culture Pending Resulted 05/02/20 16:10 Nasopharynx SARS-CoV-2 RdRp Gene Assay - Final Complete Laboratory Tests Test 05/02/20 17:45 05/02/20 22:47 05/03/20 04:00 05/03/20 07:10 White Blood Count 12.8 K/UL (4.8-10.8) H 18.6 K/UL (4.8-10.8) H Red Blood Count 5.41 M/UL (4.70-6.10) 5.14 M/UL (4.70-6.10) Hemoglobin 16.9 G/DL (14.2-18.0) 16.6 G/DL (14.2-18.0) Hematocrit 52.8 % (42.0-52.0) H 49.8 % (42.0-52.0) Mean Corpuscular Volume 97 FL (80-99) 97 FL (80-99) Mean Corpuscular Hemoglobin 31.2 PG (27.0-31.0) H 32.4 PG (27.0-31.0) H Mean Corpuscular Hemoglobin Concent 32.0 G/DL (32.0-36.0) 33.4 G/DL (32.0-36.0) Red Cell Distribution Width 12.7 % (11.6-14.8) 12.2 % (11.6-14.8) Platelet Count 162 K/UL (150-450) 166 K/UL (150-450) Mean Platelet Volume 12.2 FL (6.5-10.1) H 10.8 FL (6.5-10.1) H Neutrophils (%) (Auto) % (45.0-75.0) % (45.0-75.0) Lymphocytes (%) (Auto) % (20.0-45.0) % (20.0-45.0) Monocytes (%) (Auto) % (1.0-10.0) % (1.0-10.0) Eosinophils (%) (Auto) % (0.0-3.0) % (0.0-3.0) Basophils (%) (Auto) % (0.0-2.0) % (0.0-2.0) Differential Total Cells Counted 100 100 Neutrophils % (Manual) 93 % (45-75) H 83 % (45-75) H Lymphocytes % (Manual) 5 % (20-45) L 10 % (20-45) L Monocytes % (Manual) 2 % (1-10) 7 % (1-10) Eosinophils % (Manual) 0 % (0-3) 0 % (0-3) Basophils % (Manual) 0 % (0-2) 0 % (0-2) Band Neutrophils 0 % (0-8) 0 % (0-8) Platelet Estimate Adequate Adequate Platelet Morphology Normal Normal Red Blood Cell Morphology Normal Normal Sodium Level 140 MMOL/L (136-145) 139 MMOL/L (136-145) Potassium Level 4.4 MMOL/L (3.5-5.1) 3.9 MMOL/L (3.5-5.1) Chloride Level 103 MMOL/L (98-107) 103 MMOL/L (98-107) Carbon Dioxide Level 26 MMOL/L (21-32) 26 MMOL/L (21-32) Anion Gap 11 mmol/L (5-15) 10 mmol/L (5-15) Blood Urea Nitrogen 10 mg/dL (7-18) 10 mg/dL (7-18) Creatinine 1.3 MG/DL (0.55-1.30) 1.1 MG/DL (0.55-1.30) Estimat Glomerular Filtration Rate > 60 mL/min (>60) > 60 mL/min (>60) Glucose Level 144 MG/DL (74-106) H 106 MG/DL (74-106) Calcium Level 9.1 MG/DL (8.5-10.1) 8.8 MG/DL (8.5-10.1) Total Bilirubin 0.5 MG/DL (0.2-1.0) 0.5 MG/DL (0.2-1.0) Aspartate Amino Transf (AST/SGOT) 19 U/L (15-37) 23 U/L (15-37) Alanine Aminotransferase (ALT/SGPT) 22 U/L (12-78) 19 U/L (12-78) Alkaline Phosphatase 76 U/L (46-116) 67 U/L (46-116) Troponin I 0.000 ng/mL (0.000-0.056) Pro-B-Type Natriuretic Peptide 363 pg/mL (0-125) H Total Protein 7.9 G/DL (6.4-8.2) 7.8 G/DL (6.4-8.2) Albumin 4.0 G/DL (3.4-5.0) 3.6 G/DL (3.4-5.0) Globulin 3.9 g/dL 4.2 g/dL Albumin/Globulin Ratio 1.0 (1.0-2.7) 0.9 (1.0-2.7) L Urine Color Pale yellow Urine Appearance Clear Urine pH 8 (4.5-8.0) Urine Specific [place] 1.010 (1.005-1.035) Urine Protein 1+ (NEGATIVE) H Urine Glucose (UA) 1+ (NEGATIVE) H Urine Ketones Negative (NEGATIVE) Urine Blood Negative (NEGATIVE) Urine Nitrite Negative (NEGATIVE) Urine Bilirubin Negative (NEGATIVE) Urine Urobilinogen Normal MG/DL (0.0-1.0) Urine Leukocyte Esterase 1+ (NEGATIVE) H Urine RBC 0-2 /HPF (0 - 0) H Urine WBC 2-4 /HPF (0 - 0) Urine Squamous Epithelial Cells None /LPF (NONE/OCC) Urine Bacteria Few /HPF (NONE) Hemoglobin A1c 5.7 % (4.3-6.0) Magnesium Level 1.6 MG/DL (1.8-2.4) L Triglycerides Level 50 MG/DL (30-150) Cholesterol Level 132 MG/DL (< 200) LDL Cholesterol 65 mg/dL (<100) HDL Cholesterol 56 MG/DL (40-60) Cholesterol/HDL Ratio 2.4 (3.3-4.4) L Thyroid Stimulating Hormone (TSH) 1.070 uiU/mL (0.358-3.740) HIV (1&2) Antibody Rapid Negative (NEGATIVE) Current Medications Medications (Trade) Dose Ordered Sig/Jose Luis Route PRN Reason Start Time Stop Time Status Last Admin Dose Admin Acetaminophen (Tylenol) 650 mg Q4H PRN ORAL Mild Pain (Pain Scale 1-3) 05/02/20 21:00 06/01/20 20:59 Albuterol/ Ipratropium (Albuterol/ Ipratropium) 3 ml Q4H PRN HHN Shortness of Breath 05/03/20 09:00 05/08/20 08:59 Azithromycin 500 mg/Dextrose 275 ml @ 275 mls/hr Q24HRS IV 05/03/20 11:30 05/09/20 12:29 Dextrose (Dextrose 50%) 25 ml Q30M PRN IV Hypoglycemia 05/02/20 21:00 07/31/20 20:59 Dextrose (Dextrose 50%) 50 ml Q30M PRN IV Hypoglycemia 05/02/20 21:00 07/31/20 20:59 Enoxaparin Sodium (Lovenox) 40 mg Q24H SUBQ 05/02/20 22:00 07/31/20 21:59 05/02/20 21:59 Piperacillin Sod/ Tazobactam Sod 3.375 gm/Sodium Chloride 110 ml @ 27.5 mls/hr Q8H IVPB 05/03/20 09:30 05/10/20 09:29 05/03/20 12:25 Ele Payne MD May 03, 2020 13:38
[2020-05-03] MEDS: Azithromycin 500 MG in D5W 275 ML IV SCH (16:35)
[2020-05-03] MEDS ORDERED: cefTRIAXone 1gm/D5W 55ml IVPB SCH ×2 (18:00)
[2020-05-03] MEDS: Enoxaparin 40mg Inj SUBQ SCH (21:18)
[2020-05-03] MEDS ORDERED: HydrALAZINE 50mg tab ORAL PRN ×2 (21:45)
[2020-05-04] MEDS: Piperacillin/Tazobactam 3.375 GM in NS 110 ML IVPB SCH ×3 (00:32→18:43)
[2020-05-04 00:37] VITALS: BP 176/93
[2020-05-04 03:58] VITALS: BP 168/82
[2020-05-04 08:00] VITALS: BP 179/100
[2020-05-04 08:09] LABS: BASOPHILS % (AUTO) 0.7 % (0.0-2.0); EOSINOPHILS % (AUTO) 0.4 % (0.0-3.0); HEMATOCRIT 52.3 % (42.0-52.0); HEMOGLOBIN 17.2 G/DL (14.2-18.0); LYMPHOCYTES % (AUTO) 15.7 % (20.0-45.0); MEAN CORPUSCULAR VOLUME 97 FL (80-99); MONOCYTES % (AUTO) 11.3 % (1.0-10.0); NEUTROPHILS % (AUTO) 71.9 % (45.0-75.0); PLATELET COUNT 155 K/UL (150-450); RED BLOOD COUNT 5.41 M/UL (4.70-6.10); WHITE BLOOD COUNT 12.3 K/UL (4.8-10.8)
[2020-05-04 08:23] LABS: ANION GAP 6 mmol/L (5-15); BLOOD UREA NITROGEN 10 mg/dL (7-18); CALCIUM 8.7 MG/DL (8.5-10.1); CARBON DIOXIDE 30 MMOL/L (21-32); CHLORIDE 104 MMOL/L (98-107); CREATININE 1.1 MG/DL (0.55-1.30); POTASSIUM 3.9 MMOL/L (3.5-5.1); SODIUM 140 MMOL/L (136-145)
--- NOTE | 2020-05-04 09:53 | General Progress Note ---
Assessment/Plan Problem List: (1) Chronic diastolic congestive heart failure ICD Codes: I50.32 - Chronic diastolic (congestive) heart failure SNOMED: 06925017, 780041594 (2) Community acquired pneumonia ICD Codes: J18.9 - Pneumonia, unspecified organism SNOMED: 661811445 (3) Shortness of breath ICD Codes: R06.02 - Shortness of breath SNOMED: 406350851 (4) HTN (hypertension) ICD Codes: I10 - Essential (primary) hypertension SNOMED: 90555828 (5) Glaucoma ICD Codes: H40.9 - Unspecified glaucoma SNOMED: 32533753 Status: stable, progressing Assessment/Plan: This is a 80 year old gentleman with a history of HTN, glaucoma, chronic diastolic dysfunction (seen on prior TTE) who presents with 1 day duration of shortness of breath, cough, fever #Shortness of breath #Productive cough #Community Acquired Pneumonia #Rule out COVID-19 #Leukocytosis: significantly improving #Fever - chest x-ray with possible retrocardial infiltrate concerning for community acquired pneumonia - Pulmonology Dr. Alicia following, appreciate recommendations - s/p ceftriaxone/azithromycin (05/02-05/03 ) for pneumonia. Changed to Zosyn ( - ) by Pulmonology given increasing leukocytosis. Added Azithro (05/03 - ) for atypical coverage - D Dr. Payne consulted, appreciate recommendations - first COVID-19 rapid test negative in ED 05/02/2020, repeat on 05/03/2020 given continued high suspicion still - DVT US ordered by Pulmonology, will follow up results - Swallow eval ordered by Pulmonology to rule out chronic aspiration, will follow up results - oxygen support, wean as tolerated given improvement - follow up final sputum culture - follow up blood culture #Chronic diastolic heart failure, has old TTE suggestive of severe diastolic dysfunction - on exam, does not appear volume overloaded and chest x-ray without obvious pulmonary edema - in light of possible infection above, will hold off on diuresis at this time - repeat TTE to evaluate for changes or worsening in cardiac functioning - will need Cardiology follow up as an outpatient #Glaucoma: unknown prior meds, off meds for 2 years. blind at baseline - symptoms stable, will need outpatient follow up #HTN: poorly controlled as off of medications for 2 years - hydralazine PRN - started amlodipine as TTE shows no evidence of heart failure that would warrant SHUN/ARB #Limited resources - patient living [facility], but has no transportation and has no access to healthcare - will have PT evaluation - will consult case management to assist with obtaining transportation services and obtaining a primary care provider to work with his insurance/transportation , this will be crucial prior to discharge #Dispo: pending resolution of pneumonia, shortness of breath, anticipate 2-3 more days I spent over 40 minutes on this case with over 50% of the case counseling with the patient including assisting to feed him. I also coordinated with Equity Holder Dr. Alicia, ID Dr. Payne and nursing staff Subjective Date patient seen: May 04, 2020 Time patient seen: 09:50 Constitutional: Denies: chills, diaphoresis, fever HEENT: Reports: other - chronic blindness; Denies: eye pain Cardiovascular: Denies: chest pain, edema, irregular heart rate Respiratory: Reports: cough; Denies: orthopnea, shortness of breath, SOB with excertion Gastrointestinal/Abdominal: Denies: abdominal pain, diarrhea, vomiting Genitourinary: Denies: burning, discharge, frequency Neurologic/Psychiatric: Denies: depressed, emotional problems Endocrine: Denies: flushing, intolerance to cold, intolerance to heat Hematologic/Lymphatic: Denies: anemia, easy bleeding, easy bruising Allergies: Coded Allergies: NO KNOWN ALLERGIES (Unverified Allergy, Unknown, 10/13/15) All Systems: reviewed and negative except above Subjective continually improving shortness of breath and fevers, no other new symptoms Objective Last 24 Hour Vital Signs Date Time Temp Pulse Resp B/P (MAP) Pulse Ox O2 Delivery O2 Flow Rate FiO2 05/04/20 08:54 83 179/100 05/04/20 08:00 97.9 83 20 179/100 (126) 97 05/04/20 03:58 98.6 91 18 168/82 (110) 98 05/04/20 00:37 99.0 88 18 176/93 (120) 98 05/03/20 21:56 88 177/86 05/03/20 21:00 Nasal Cannula 2.0 05/03/20 21:00 88 177/86 (116) 05/03/20 20:00 97.7 82 18 186/95 (125) 98 05/03/20 16:00 98.1 83 18 158/83 (108) 98 05/03/20 12:00 98.1 89 19 136/80 (98) 98 Intake and Output 05/03/20 05/04/20 19:00 07:00 Intake Total 1177.5 ml 312.5 ml Output Total 400 ml 550 ml Balance 777.5 ml -237.5 ml Intake Oral 840 ml 120 ml IV Total 337.5 ml 192.5 ml Output Urine Total 400 ml 550 ml # Voids 100 4 Laboratory Tests 05/04/20 07:40: White Blood Count 12.3H, Red Blood Count 5.41, Hemoglobin 17.2, Hematocrit 52.3H , Mean Corpuscular Volume 97, Mean Corpuscular Hemoglobin 31.8H, Mean Corpuscular Hemoglobin Concent 32.9, Red Cell Distribution Width 12.0, Platelet Count 155, Mean Platelet Volume 10.3H, Neutrophils (%) (Auto) 71.9, Lymphocytes (%) (Auto) 15.7L, Monocytes (%) (Auto) 11.3H, Eosinophils (%) (Auto) 0.4, Basophils (%) (Auto) 0.7, Sodium Level 140, Potassium Level 3.9, Chloride Level 104, Carbon Dioxide Level 30, Anion Gap 6, Blood Urea Nitrogen 10, Creatinine 1.1, Estimat Glomerular Filtration Rate > 60, Glucose Level 92, Calcium Level 8.7, C-Reactive Protein, Quantitative 2.2H Height (Feet): 5 Height (Inches): 11.00 Weight (Pounds): 170 General Appearance: WD/WN, no apparent distress, alert EENT: PERRL/EOMI, normal ENT inspection, pharynx normal, other - blindness at baseline Neck: non-tender, normal alignment, supple, normal inspection Cardiovascular: normal peripheral pulses, normal rate, regular rhythm, no JVD Respiratory/Chest: chest wall non-tender, lungs clear, normal breath sounds, no accessory muscle use Abdomen: normal bowel sounds, non tender, soft, no mass Pelvis: no active bleeding Extremities: normal range of motion, non-tender, normal inspection Edema: no edema noted Arm (L), no edema noted Arm (R), no edema noted Leg (L), no edema noted Leg (R), no edema noted Pedal (L), no edema noted Pedal (R) Neurologic: no motor/sensory deficits, alert, oriented x 3 Skin: normal pigmentation, warm/dry Lukasz Alexis M.D. May 04, 2020 09:53
--- NOTE | 2020-05-04 11:20 | Pulmonology Progress Note ---
Jeannine Payne TECHNICAL SALES DIRECTOR 05/04/20 1120: Subjective Allergies: Coded Allergies: NO KNOWN ALLERGIES (Unverified Allergy, Unknown, 10/13/15) All Systems: reviewed and negative except above Subjective leuk trending down afebrile CXR for this am pending pulse ox stable on O2 via NC Objective Last 24 Hour Vital Signs Date Time Temp Pulse Resp B/P (MAP) Pulse Ox O2 Delivery O2 Flow Rate FiO2 05/04/20 09:00 Nasal Cannula 2.0 05/04/20 08:54 83 179/100 05/04/20 08:00 97.9 83 20 179/100 (126) 97 05/04/20 03:58 98.6 91 18 168/82 (110) 98 05/04/20 00:37 99.0 88 18 176/93 (120) 98 05/03/20 21:56 88 177/86 05/03/20 21:00 Nasal Cannula 2.0 05/03/20 21:00 88 177/86 (116) 05/03/20 20:00 97.7 82 18 186/95 (125) 98 05/03/20 16:00 98.1 83 18 158/83 (108) 98 05/03/20 12:00 98.1 89 19 136/80 (98) 98 Intake and Output 05/03/20 05/04/20 19:00 07:00 Intake Total 1177.5 ml 312.5 ml Output Total 400 ml 550 ml Balance 777.5 ml -237.5 ml Intake Oral 840 ml 120 ml IV Total 337.5 ml 192.5 ml Output Urine Total 400 ml 550 ml # Voids 100 4 Objective General Appearance: no apparent distress, alert Lines, tubes and drains: peripheral HEENT: normocephalic, atraumatic, legally blind, Neck: non-tender, supple Respiratory/Chest: chest wall non-tender, lungs clear with moderate air exchange , no respiratory distress, no accessory muscle use Cardiovascular/Chest: normal rate Abdomen: normal bowel sounds, non tender, soft Extremities: normal range of motion, non-tender, no calf tenderness, normal capillary refill Skin Exam: warm/dry Neurologic: alert, responsive Musculoskeletal: normal muscle bulk Microbiology Date/Time Source Procedure Growth Status 05/02/20 17:45 Blood Blood Culture - Preliminary NO GROWTH AFTER 24 HOURS Resulted 05/02/20 17:35 Blood Blood Culture - Preliminary NO GROWTH AFTER 24 HOURS Resulted 05/03/20 17:20 Nasopharynx SARS-CoV-2 RdRp Gene Assay - Final Complete 05/02/20 22:52 Sputum Gram Stain - Final Resulted 05/02/20 22:52 Sputum Culture - Preliminary Gram Negative Bacillus 1 Gram Negative Bacillus 2 Usual Respiratory Bonny Resulted 05/02/20 16:10 Nasopharynx SARS-CoV-2 RdRp Gene Assay - Final Complete Laboratory Tests 05/04/20 07:40: White Blood Count 12.3H, Red Blood Count 5.41, Hemoglobin 17.2, Hematocrit 52.3H , Mean Corpuscular Volume 97, Mean Corpuscular Hemoglobin 31.8H, Mean Corpuscular Hemoglobin Concent 32.9, Red Cell Distribution Width 12.0, Platelet Count 155, Mean Platelet Volume 10.3H, Neutrophils (%) (Auto) 71.9, Lymphocytes (%) (Auto) 15.7L, Monocytes (%) (Auto) 11.3H, Eosinophils (%) (Auto) 0.4, Basophils (%) (Auto) 0.7, Sodium Level 140, Potassium Level 3.9, Chloride Level 104, Carbon Dioxide Level 30, Anion Gap 6, Blood Urea Nitrogen 10, Creatinine 1.1, Estimat Glomerular Filtration Rate > 60, Glucose Level 92, Calcium Level 8.7, C-Reactive Protein, Quantitative 2.2H Current Medications Medications (Trade) Dose Ordered Sig/Jose Luis Route PRN Reason Start Time Stop Time Status Last Admin Dose Admin Acetaminophen (Tylenol) 650 mg Q4H PRN ORAL Mild Pain (Pain Scale 1-3) 05/02/20 21:00 06/01/20 20:59 Albuterol/ Ipratropium (Albuterol/ Ipratropium) 3 ml Q4H PRN HHN Shortness of Breath 05/03/20 09:00 05/08/20 08:59 Amlodipine Besylate (Norvasc) 5 mg DAILY ORAL 05/03/20 21:45 06/02/20 21:44 05/04/20 08:54 Azithromycin 500 mg/Dextrose 275 ml @ 275 mls/hr Q24HRS IV 05/03/20 16:00 05/09/20 16:59 05/03/20 16:35 Dextrose (Dextrose 50%) 25 ml Q30M PRN IV Hypoglycemia 05/02/20 21:00 07/31/20 20:59 Dextrose (Dextrose 50%) 50 ml Q30M PRN IV Hypoglycemia 05/02/20 21:00 07/31/20 20:59 Enoxaparin Sodium (Lovenox) 40 mg Q24H SUBQ 05/02/20 22:00 07/31/20 21:59 05/03/20 21:18 Hydralazine HCl (Apresoline) 50 mg Q8H PRN ORAL SBP > 180 05/03/20 21:45 08/01/20 21:44 Piperacillin Sod/ Tazobactam Sod 3.375 gm/Sodium Chloride 110 ml @ 27.5 mls/hr Q8H IVPB 05/03/20 09:30 05/10/20 09:29 05/04/20 08:56 Assessment/Plan Assessment/Plan ASSESSMENT Pneumonia probably CAP possible aspiration Shortness of breath Chronic diastolic CHF Hypertension with initial hypertensive urgency Suspected COVID-19 Former smoker Chronic cough Legally blind PLAN of CARE MS floor O2 titrate to keep sat above 90% Pulm toilet SCX + GCB two dif species rapid COVID NGT x 2 ( 05/02 and 05/03) BCX 05/01 NGTD abx-> Zosyn and Azithromycin ID recs appreciated swallow eval this am , possibly aspiration? given being legally blind fup with CXR today venous Duplex BLE DVT prophylaxis ECHO with pEF troponin NGT monitor volumes BP management, probably will need routine anti-HTN to keep BP under control started on CCB, dose increased this am, since BP still not under control supportive care PT eval and Rx thank you for a consult Miguelito Le MD 05/04/202126: Subjective Allergies: Coded Allergies: NO KNOWN ALLERGIES (Unverified Allergy, Unknown, 10/13/15) Assessment/Plan Assessment/Plan Patient seen and examined with TECHNICAL SALES DIRECTOR. Agree with above A&P as it reflects our joint deliberations. Jeannine Payne TECHNICAL SALES DIRECTOR May 04, 2020 11:20 Miguelito Le MD May 04, 2020 21:27
--- NOTE | 2020-05-04 11:25 | Diagnostic Imaging Report ---
Procedure: XRAY Chest 1v Reason for study: Reason For Exam: SOB Comparison films: None. FINDINGS: A single one view chest is obtained. Vascularity is normal. The lung cartagena are clear bilaterally. Cardiac and mediastinal silhouette are within normal limits. CP angles are sharp. Aorta mildly tortuous. IMPRESSION: NO ACUTE CARDIOPULMONARY DISEASE.
--- NOTE | 2020-05-04 11:44 | Diagnostic Imaging Report ---
Procedure: XRAY Chest 1v Reason for study: Shortness of breath and cough. Comparison films: None. FINDINGS: A single one view chest is obtained. Vascularity is normal. The lung cartagena are clear bilaterally. Cardiac and mediastinal silhouette are within normal limits. CP angles are sharp. The bony thorax appear unremarkable. IMPRESSION: NO ACUTE CARDIOPULMONARY DISEASE.
--- NOTE | 2020-05-04 11:45 | Diagnostic Imaging Report ---
EXAM: ULTRASOUND Venous Duplex Scan Marcelo Leg CLINICAL HISTORY: Leg pain and edema. COMPARISON: None TECHNIQUE: Doppler examination include grayscale images obtained with and without compression, and color and spectral doppler analysis. FINDINGS: Doppler examination shows normal spontaneity, phasicity, compressibility in the bilateral lower extremities. There is no thrombus identified by grayscale. Normal color and spectral flow is identified. There is no evidence of valvular incompetency or insufficiency. IMPRESSION: UNREMARKABLE VENOUS DUPLEX.
[2020-05-04 12:00] VITALS: BP 150/83
[2020-05-04 16:00] VITALS: BP 160/77
[2020-05-04] MEDS: Azithromycin 500 MG in D5W 275 ML IV SCH (17:31)
--- NOTE | 2020-05-04 17:52 | Infectious Diseases Prog Note ---
Assessment/Plan Assessment/Plan Full consult dictated: ? gram neg pneumonia, sepsis, leukocytosis, ? uri/bronchitis chest x-ray - read as NAD sputum culture - gram negative organisms pmh noted allergies - nkda zosyn, discontinue azithromycin f/u on sputum culture monitor labs and chest x-ray ? need CT chest - defer to pulmonary medicine will f/u Subjective Allergies: Coded Allergies: NO KNOWN ALLERGIES (Unverified Allergy, Unknown, 10/13/15) Objective Last 24 Hour Vital Signs Date Time Temp Pulse Resp B/P (MAP) Pulse Ox O2 Delivery O2 Flow Rate FiO2 05/04/20 12:00 98.4 80 20 150/83 (105) 97 05/04/20 09:00 Nasal Cannula 2.0 05/04/20 08:54 83 179/100 05/04/20 08:00 97.9 83 20 179/100 (126) 97 05/04/20 03:58 98.6 91 18 168/82 (110) 98 05/04/20 00:37 99.0 88 18 176/93 (120) 98 05/03/20 21:56 88 177/86 05/03/20 21:00 Nasal Cannula 2.0 05/03/20 21:00 88 177/86 (116) 05/03/20 20:00 97.7 82 18 186/95 (125) 98 Height (Feet): 5 Height (Inches): 11.00 Weight (Pounds): 170 Microbiology Date/Time Source Procedure Growth Status 05/02/20 17:45 Blood Blood Culture - Preliminary NO GROWTH AFTER 24 HOURS Resulted 05/02/20 17:35 Blood Blood Culture - Preliminary NO GROWTH AFTER 24 HOURS Resulted 05/03/20 17:20 Nasopharynx SARS-CoV-2 RdRp Gene Assay - Final Complete 05/02/20 22:52 Sputum Gram Stain - Final Resulted 05/02/20 22:52 Sputum Culture - Preliminary Gram Negative Bacillus 1 Gram Negative Bacillus 2 Usual Respiratory Bonny Resulted 05/02/20 16:10 Nasopharynx SARS-CoV-2 RdRp Gene Assay - Final Complete Laboratory Tests Test 05/04/20 07:40 White Blood Count 12.3 K/UL (4.8-10.8) H Red Blood Count 5.41 M/UL (4.70-6.10) Hemoglobin 17.2 G/DL (14.2-18.0) Hematocrit 52.3 % (42.0-52.0) H Mean Corpuscular Volume 97 FL (80-99) Mean Corpuscular Hemoglobin 31.8 PG (27.0-31.0) H Mean Corpuscular Hemoglobin Concent 32.9 G/DL (32.0-36.0) Red Cell Distribution Width 12.0 % (11.6-14.8) Platelet Count 155 K/UL (150-450) Mean Platelet Volume 10.3 FL (6.5-10.1) H Neutrophils (%) (Auto) 71.9 % (45.0-75.0) Lymphocytes (%) (Auto) 15.7 % (20.0-45.0) L Monocytes (%) (Auto) 11.3 % (1.0-10.0) H Eosinophils (%) (Auto) 0.4 % (0.0-3.0) Basophils (%) (Auto) 0.7 % (0.0-2.0) Sodium Level 140 MMOL/L (136-145) Potassium Level 3.9 MMOL/L (3.5-5.1) Chloride Level 104 MMOL/L (98-107) Carbon Dioxide Level 30 MMOL/L (21-32) Anion Gap 6 mmol/L (5-15) Blood Urea Nitrogen 10 mg/dL (7-18) Creatinine 1.1 MG/DL (0.55-1.30) Estimat Glomerular Filtration Rate > 60 mL/min (>60) Glucose Level 92 MG/DL (74-106) Calcium Level 8.7 MG/DL (8.5-10.1) C-Reactive Protein, Quantitative 2.2 mg/dL (0.00-0.90) H Current Medications Medications (Trade) Dose Ordered Sig/Jose Luis Route PRN Reason Start Time Stop Time Status Last Admin Dose Admin Acetaminophen (Tylenol) 650 mg Q4H PRN ORAL Mild Pain (Pain Scale 1-3) 05/02/20 21:00 06/01/20 20:59 Albuterol/ Ipratropium (Albuterol/ Ipratropium) 3 ml Q4H PRN HHN Shortness of Breath 05/03/20 09:00 05/08/20 08:59 Amlodipine Besylate (Norvasc) 10 mg DAILY ORAL 05/05/20 09:00 06/04/20 08:59 Azithromycin 500 mg/Dextrose 275 ml @ 275 mls/hr Q24HRS IV 05/03/20 16:00 05/09/20 16:59 05/04/20 17:31 Dextrose (Dextrose 50%) 25 ml Q30M PRN IV Hypoglycemia 05/02/20 21:00 07/31/20 20:59 Dextrose (Dextrose 50%) 50 ml Q30M PRN IV Hypoglycemia 05/02/20 21:00 07/31/20 20:59 Enoxaparin Sodium (Lovenox) 40 mg Q24H SUBQ 05/02/20 22:00 07/31/20 21:59 05/03/20 21:18 Hydralazine HCl (Apresoline) 50 mg Q8H PRN ORAL SBP > 180 05/03/20 21:45 08/01/20 21:44 Piperacillin Sod/ Tazobactam Sod 3.375 gm/Sodium Chloride 110 ml @ 27.5 mls/hr Q8H IVPB 05/03/20 09:30 05/10/20 09:29 05/04/20 08:56 Ele Payne MD May 04, 2020 17:52
[2020-05-04 20:00] VITALS: BP 144/85
--- NOTE | 2020-05-04 21:15 | Consultation ---
DATE OF CONSULTATION: 05/04/2020 INFECTIOUS DISEASE CONSULTATION CONSULTING PHYSICIAN: Ele Payne M.D. ATTENDING PHYSICIAN: Alfred Alicia M.D. REFERRING PHYSICIANS: 1. Alfred Alicia M.D. 2. Lukasz Alexis M.D. REASON FOR CONSULTATION: Pneumonia, sepsis, leukocytosis, SIRS criteria, respiratory illness, and infection. CHIEF COMPLAINT: The patient's chief complaint coming into the hospital is pneumonia, respiratory illness, cough, and congestion. HISTORY OF PRESENT ILLNESS: This is a very pleasant 80-year-old male, who presents to [facility], comes from a long term. The patient had cough and shortness of breath. The patient was tested for COVID-19 twice and the nasopharyngeal testing has been negative. Initial chest x-ray reading showed retrocardiac infiltrate per the notes, however, chest x-ray reading at this time shows no acute cardiopulmonary disease on May 02, 2020 and May 06, 2020. The patient presents as a respiratory infection including pneumonia and upper respiratory infection/bronchitis. Sputum culture has grown out gram-negative organisms, identification is pending. The patient currently is on Zosyn and azithromycin, however, because of the negative chest x-ray and because of the positive sputum culture, we will stop azithromycin. Infectious Disease consultation is requested for antibiotic management. The patient currently is on Zosyn for what looks like gram-negative pneumonia and possible community-acquired pneumonia. Leukocytosis has improved on the antibiotics. MAR was noted. Orders were noted. Notes and records were reviewed. REVIEW OF SYSTEMS: CONSTITUTIONAL: The patient states his respiratory status is improved. He has no fever, chills, night sweats. HEAD AND NECK: No headache, neck stiffness, thrush, or dysphagia. No sinus tenderness. CARDIAC: No chest pain or palpitations. GASTROINTESTINAL: No nausea, vomiting, abdominal pain, or diarrhea. GENITOURINARY: No dysuria or frequency. PULMONARY: Cough and congestion improved. Shortness of breath improved. SKIN: No rash or itching. EXTREMITIES: No pain. NEUROLOGIC: No seizures. No joint pain. Generalized fatigue. No focal weakness. PAST MEDICAL HISTORY: The patient's past medical history includes the following. The patient has a past medical history of hypertension, glaucoma, and CHF. No history of diabetes it looks like. Legally blind. MEDICATIONS: Upon reviewing the MAR, the patient is on the following medications. The patient is on amlodipine, hydralazine, Zosyn, albuterol, abx, acetaminophen, and IV fluids. Outside medications were noted and reconciliated. ALLERGIES: No known drug allergies. No antibiotic allergies. SOCIAL HISTORY: Positive smoking in the past. No alcohol or drug abuse. FAMILY HISTORY: Noncontributory. Negative for exposure to tuberculosis or cancer. PHYSICAL EXAMINATION: VITAL SIGNS: Temperature is 98.4, pulse 80, respiratory rate 20, blood pressure 152/83, and saturation 97% on 2 liters. GENERAL: Alert and responsive, in no acute distress. HEAD AND NECK: Oral exam, no thrush. Eye exam, no icterus. Normocephalic. Neck is supple. No JVD. HEART: Regular. No gallop or murmur. No friction rub. ABDOMEN: Soft. Positive bowel sounds. Nontender. LUNGS: Few bilateral rhonchi. Possible rales. SKIN: No rash or dermatitis. MUSCULOSKELETAL: No septic arthritis. Lower extremity exam without cellulitis. PERIPHERAL VASCULAR: No gangrene or cyanosis. GENITOURINARY: No Cassidy. No CVA tenderness. LINE SITES: Without phlebitis. NEUROLOGIC: Intact. Alert and oriented x3. Nonfocal . LABORATORY DATA: White count 12.3 and hemoglobin 17.2. White count yesterday is 18.6. Creatinine is 1.1. LFTs noted. UA was 2 to 4 white cells. IMAGING STUDIES: Initial chest x-ray was read, I believe, as retrocardiac infiltrate per the notes. However, now chest x-ray from May 02, 2020 and May 04, 2020 both read as no acute cardiopulmonary disease. CULTURES: Sputum culture, gram-negative rods and also normal ting. Blood cultures are negative. SARS testing or COVID testing negative x2 by nasopharyngeal testing. HIV testing was negative. ASSESSMENT AND PLAN: 1. The patient has what looks like possible gram-negative pneumonia versus upper respiratory infection, bronchitis, and respiratory illness. Initial chest x-ray with possible retrocardiac infiltrate, however, looks like reading now is chest x-ray negative x2. The patient was initially on Zosyn and azithromycin because of the congestion, shortness of breath, and respiratory symptoms. Because of the sputum culture being gram-negative and there is no evidence of multifocal bilateral pneumonia, I will stop the azithromycin. Continue Zosyn for possibility of gram-negative upper respiratory infection and bronchitis, rule out gram-negative pneumonia and this also in addition if there was any Strep pneumonia, Zosyn will have excellent coverage. Continue Zosyn for now. This is I believe day #2 of Zosyn. Follow up on sputum culture. Consider CT scan of the chest if indicated. We will discuss with Pulmonary Medicine. We will defer to Pulmonary Medicine. Continue again Zosyn for possible community-acquired and gram-negative pneumonia. Check final culture results. Overall, his symptoms have improved on antibiotics. The patient also could be septic with SIRS criteria. He did have a white count as high as 18.6. In addition, he was also tachycardic as high as 100 and respiratory rate was as high as 20. So, the patient did have SIRS criteria based on heart rate and elevated white count. However, overall sepsis seems to have improved also with elevated white count, improved. 2. The patient has hypertension. Blood pressure treatment primary care team and consultants. 3. CHF history. Treatment per primary care team and consultants. 4. Legally blind. 5. Continue treatment per primary consultants. 6. No known allergies. 7. Social history is positive for smoking in the past. 8. Family history is noncontributory. 9. MAR was noted. 10. Case was discussed with RN. 11. Orders were noted and entered. 12. Pulmonary follow-up and treatment. Ele Payne M.D. DR: Emily JOB#: [id number] CC: SUN
[2020-05-04] MEDS: Enoxaparin 40mg Inj SUBQ SCH (21:31)
[2020-05-05] VITALS: BP 156/87
[2020-05-05] MEDS: Piperacillin/Tazobactam 3.375 GM in NS 110 ML IVPB SCH ×2 (01:53→12:04)
[2020-05-05 04:00] VITALS: BP 157/90
[2020-05-05 06:53] LABS: BASOPHILS % (AUTO) 1.7 % (0.0-2.0); EOSINOPHILS % (AUTO) 1.1 % (0.0-3.0); HEMATOCRIT 51.8 % (42.0-52.0); HEMOGLOBIN 16.8 G/DL (14.2-18.0); LYMPHOCYTES % (AUTO) 20.1 % (20.0-45.0); MEAN CORPUSCULAR VOLUME 97 FL (80-99); MONOCYTES % (AUTO) 12.1 % (1.0-10.0); NEUTROPHILS % (AUTO) 65.1 % (45.0-75.0); PLATELET COUNT 168 K/UL (150-450); RED BLOOD COUNT 5.35 M/UL (4.70-6.10); RED CELL DISTRIBUTION WIDTH 11.9 % (11.6-14.8); WHITE BLOOD COUNT 9.3 K/UL (4.8-10.8)
[2020-05-05 07:33] LABS: ANION GAP 6 mmol/L (5-15); BLOOD UREA NITROGEN 13 mg/dL (7-18); CALCIUM 8.7 MG/DL (8.5-10.1); CARBON DIOXIDE 30 MMOL/L (21-32); CHLORIDE 106 MMOL/L (98-107); CREATININE 1.3 MG/DL (0.55-1.30); POTASSIUM 3.8 MMOL/L (3.5-5.1); SODIUM 141 MMOL/L (136-145)
[2020-05-05 08:00] VITALS: BP 159/90
--- NOTE | 2020-05-05 09:07 | Pulmonology Progress Note ---
Subjective Allergies: Coded Allergies: NO KNOWN ALLERGIES (Unverified Allergy, Unknown, 10/13/15) All Systems: reviewed and negative except above Subjective leuk resolved afebrile pulse ox stable on O2 via NC reports chronic dry cough, hx of smoking no CP , intermittent SOB Objective Last 24 Hour Vital Signs Date Time Temp Pulse Resp B/P (MAP) Pulse Ox O2 Delivery O2 Flow Rate FiO2 05/05/20 08:48 96 159/90 05/05/20 04:00 97.3 78 20 157/90 (112) 97 05/05/20 00:00 98.4 87 20 156/87 (110) 95 05/04/20 21:00 Nasal Cannula 2.0 05/04/20 20:00 97.9 84 20 144/85 (104) 97 05/04/20 16:00 97.9 83 20 160/77 (104) 96 05/04/20 12:00 98.4 80 20 150/83 (105) 97 Intake and Output 05/04/20 05/05/20 19:00 07:00 Intake Total 1225.0 ml 565.0 ml Output Total 1000 ml Balance 225.0 ml 565.0 ml Intake Oral 840 ml 400 ml IV Total 385.0 ml 165.0 ml Output Urine Total 1000 ml # Voids 4 # Bowel Movements 1 Objective General Appearance: no apparent distress, alert Lines, tubes and drains: peripheral HEENT: normocephalic, atraumatic, legally blind, Neck: non-tender, supple Respiratory/Chest: chest wall non-tender, lungs clear with moderate air exchange , no respiratory distress, no accessory muscle use Cardiovascular/Chest: normal rate Abdomen: normal bowel sounds, non tender, soft Extremities: normal range of motion, non-tender, no calf tenderness, normal capillary refill Skin Exam: warm/dry Neurologic: alert, responsive Musculoskeletal: normal muscle bulk Microbiology Date/Time Source Procedure Growth Status 05/02/20 17:45 Blood Blood Culture - Preliminary NO GROWTH AFTER 48 HOURS Resulted 05/02/20 17:35 Blood Blood Culture - Preliminary NO GROWTH AFTER 48 HOURS Resulted 05/03/20 17:20 Nasopharynx SARS-CoV-2 RdRp Gene Assay - Final Complete 05/02/20 22:52 Sputum Gram Stain - Final Complete 05/02/20 22:52 Sputum Culture - Final Escherichia Coli Enterobacter Aerogenes Usual Respiratory Bonny Complete 05/02/20 16:10 Nasopharynx SARS-CoV-2 RdRp Gene Assay - Final Complete Laboratory Tests 05/05/20 06:13: White Blood Count 9.3, Red Blood Count 5.35, Hemoglobin 16.8, Hematocrit 51.8, Mean Corpuscular Volume 97, Mean Corpuscular Hemoglobin 31.4H, Mean Corpuscular Hemoglobin Concent 32.4, Red Cell Distribution Width 11.9, Platelet Count 168, Mean Platelet Volume 10.9H, Neutrophils (%) (Auto) 65.1, Lymphocytes (%) (Auto) 20.1, Monocytes (%) (Auto) 12.1H, Eosinophils (%) (Auto) 1.1, Basophils (%) ( Auto) 1.7, Sodium Level 141, Potassium Level 3.8, Chloride Level 106, Carbon Dioxide Level 30, Anion Gap 6, Blood Urea Nitrogen 13, Creatinine 1.3, Estimat Glomerular Filtration Rate > 60, Glucose Level 86, Calcium Level 8.7 Current Medications Medications (Trade) Dose Ordered Sig/Jose Luis Route PRN Reason Start Time Stop Time Status Last Admin Dose Admin Acetaminophen (Tylenol) 650 mg Q4H PRN ORAL Mild Pain (Pain Scale 1-3) 05/02/20 21:00 06/01/20 20:59 Albuterol/ Ipratropium (Albuterol/ Ipratropium) 3 ml Q4H PRN HHN Shortness of Breath 05/03/20 09:00 05/08/20 08:59 Amlodipine Besylate (Norvasc) 10 mg DAILY ORAL 05/05/20 09:00 06/04/20 08:59 05/05/20 08:48 Dextrose (Dextrose 50%) 25 ml Q30M PRN IV Hypoglycemia 05/02/20 21:00 07/31/20 20:59 Dextrose (Dextrose 50%) 50 ml Q30M PRN IV Hypoglycemia 05/02/20 21:00 07/31/20 20:59 Enoxaparin Sodium (Lovenox) 40 mg Q24H SUBQ 05/02/20 22:00 07/31/20 21:59 05/04/20 21:31 Hydralazine HCl (Apresoline) 50 mg Q8H PRN ORAL SBP > 180 05/03/20 21:45 08/01/20 21:44 Piperacillin Sod/ Tazobactam Sod 3.375 gm/Sodium Chloride 110 ml @ 27.5 mls/hr Q8H IVPB 05/03/20 09:30 05/10/20 09:29 05/05/20 01:53 Assessment/Plan Assessment/Plan ASSESSMENT Pneumonia probably CAP possible aspiration -doubt now Chronic cough Shortness of breath Chronic diastolic CHF Hypertension with initial hypertensive urgency Suspected COVID-19 Former smoker Legally blind PLAN of CARE MS floor O2 titrate to keep sat above 90% Pulm toilet SCX + Enterobacter, E coli rapid COVID NGT x 2 ( 05/02 and 05/03) BCX 05/01 NGTD abx-> Zosyn ID recs appreciated passed swallow eval fup with CXR 05/04 no acute CP pathology given chronic cough and SOB will proceed with CT chest venous Duplex BLE -> NGT DVT prophylaxis ECHO with pEF troponin NGT monitor volumes BP management, probably will need routine anti-HTN to keep BP under control on CCB, dose increased this am, since BP still not under control supportive care PT eval and Rx thank you for a consult Jeannine Payne ASSISTANT PROFESSOR OF SOCIOLOGY May 05, 2020 09:07
[2020-05-05] MEDS ORDERED: Omnipaque-300 100ml vial INJ SCH (09:15)
[2020-05-05 12:00] VITALS: BP 160/88
--- NOTE | 2020-05-05 13:44 | Diagnostic Imaging Report ---
EXAM: CT CT Chest w Contrast CLINICAL HISTORY: Shortness of breath and chronic cough. TECHNIQUE: Axial images obtained through the chest with contrast. All CT scans at this facility are performed using dose modulation techniques as appropriate to a performed exam including the following: automated exposure control with adjustment of the mA and/or kV according to patient size. RADIATION DOSE: CTDIvol: 113 mGy DLP: 306.5 mGy-cm Dose information generated by the CT scanner is available in PACS. COMPARISON: 10/13/2015 FINDINGS: There is mild central bronchiectasis noted in the lung bases. Some minimal peripheral inflammatory changes noted. No alveolar consolidation, nodule or mass. Cardiac and mediastinal structures are within normal limits. There is no pathologic size adenopathy. There is no effusion. Limited images through the upper abdomen show bilateral renal cysts. Stomach distended with food debris. There is an amorphous fluid collection identified deep to the pancreas extending down to the transverse portion of the duodenum. It contains fluid and mottled air lucencies. This was also noted to be present in the 2016 exam and is likely a large duodenal diverticulum. IMPRESSION: CENTRAL BRONCHIECTASIS NOTED IN THE LUNG BASES BUT OTHERWISE NO ACUTE ALVEOLAR PROCESS. REDEMONSTRATION OF A LARGE DUODENAL DIVERTICULUM MIMICKING A RETROPERITONEAL FLUID COLLECTION IN THE UPPER ABDOMEN ADJACENT TO THE PANCREAS. THIS WAS ALSO PRESENT IN PRIOR EXAM FROM 2016.
[2020-05-05] MEDS ORDERED: NORVASC10 MG ORAL (14:24)
[2020-05-05] MEDS ORDERED: LEVOFLOXACIN500 MG ORAL (14:24)
--- NOTE | 2020-05-05 14:27 | Discharge Instructions ---
Discharge Instructions Discharge Instructions Follow up with: Primary care provider in 1 week Call MD/Return to Hospital if: you have fever again, worsening cough, worsening shortness of breath, pain Diet: regular Resume Normal Activity?: Yes Activity: resume normal activities Follow Up Orders I have started a new medication for your high blood pressure. This is called Amlodipine, please take 1 tablet a day. In addition, we recommend finishing an additional 5 days of antibiotics. This antibiotic is called Levofloxacin. Please take 1 tablet a day for 5 days. It may take several days to weeks to fully recover from your pneumonia. However , if you start to feel like your shortness of breath or fevers get worse again, please return to the Emergency Department. It is very important that you continue to get care from your primary care provider. We strongly recommend making an appointment to be seen within 1-2 weeks of leaving the hospital. Please take the discharge summary with you so the doctor knows what we did for you. Since it is unclear who your primary care provider is, we recommend that you schedule an appointment Dr. Nic Vegas. His office is right across the street from [facility]. Please call [phone] to set up an appointment at your earliest convenience, but certainly within 1-2 weeks after leaving the hospital. You will get more information regarding location, scheduling, and parking at that time. In addition, you can also call your health insurance company and ask them for information regarding who your primary care provider ( or PCP) is and if you can switch them at your convenience. For Congestive Heart Failure Reminder Report to your physician any weight gain of 5 pounds or more in one week. Lukasz Alexis M.D. May 05, 2020 14:27
--- NOTE | 2020-05-05 14:48 | Discharge Summary ---
Discharge Summary Hospital Course Date of Admission May 02, 2020 at 18:32 Date of Discharge 05/05/2020 at 2:37 pm Admitting Diagnosis PNEUMONIA Reason for Hospitalization: sepsis and pneumonia requiring IV antibiotics HPI Archie Kirkpatrick is a 80 year old male who was admitted on May 02, 2020 at 18:32 for Pneumonia This is a 80 year old gentleman with a history of HTN, glaucoma, who presented from a board and care with 1 day's duration of shortness of breath. The patient said he has not seen a physician in 2 years and had not taken any medications for that time either. At baseline he is independently ambulatory with a cane. He is independent with activities of daily living and no longer has a caregiver. He has been in his usual state of health until day of admission when he started to notice shortness of breath as well as a productive cough. He had associated fevers and chills during this time also. He otherwise denied chest pain, chest pressure, abdominal pain, nausea, vomiting, diarrhea, leg swelling, weakness, paresthesias, new vision changes. He denied travel or anyone else around him being sick. The patient then presented to the ED. There, he was noted to be afebrile and hemodynamically stable and had saturation of 93% on room air so was started on 2L NC. A chest x-ray showed possible retrocardiac infiltrate and he was started on treatment for presumed community acquired pneumonia with Azithromycin and Ceftriaxone. His BNP was mildly elevated and his EKG/troponin were reassuring for ACS. He was then admitted for further management. Consultations Infectious Diseases - [place], Pulmonology - [facility] Procedures CT Chest 05/05/20 IMPRESSION: CENTRAL BRONCHIECTASIS NOTED IN THE LUNG BASES BUT OTHERWISE NO ACUTE ALVEOLAR PROCESS. REDEMONSTRATION OF A LARGE DUODENAL DIVERTICULUM MIMICKING A RETROPERITONEAL FLUID COLLECTION IN THE UPPER ABDOMEN ADJACENT TO THE PANCREAS. THIS WAS ALSO PRESENT IN PRIOR EXAM FROM 2016. Hospital Course On admission, the patient was initially septic with leukocytosis, tachycardia, tachypnea. His antibiotics were broadened from ceftriaxone/azithromycin to Zosyn per ID and Pulmonology. On this, the patient had significantly improved symptoms as well as leukocytosis. By date of discharge he was on room air and his pneumonia was resolving. Per ID, he is discharged to complete additional 5 days of Levofloxacin as respiratory cultures had E. coli and Enterobacter, both of which were susceptible to Levofloxacin. Of note, during stay, he was hypertensive and started on Amlodipine with significant improvement in blood pressure. A DVT US was negative and a CT chest was also done which only showed bronchiectasis and minimal peripheral inflammatory changes thought to be secondary to resolving pneumonia. His COVID-19 test was negative x 2, each 24 hours apart. He was discharged back to his board and care with plan to establish care with a primary care provider. Problems addressed during hospitalization: #Sepsis: with leukocytosis, tachycardia, tachypnea: resolved #Shortness of breath #Productive cough #Community Acquired Pneumonia #Leukocytosis: significantly improving #Fever - chest x-ray with possible retrocardial infiltrate concerning for community acquired pneumonia, CT chest done with only bronchiectasis and minimal peripheral inflammatory changes - Pulmonology Dr. Alicia following, appreciate recommendations - s/p ceftriaxone/azithromycin (05/02-05/03 ) for pneumonia. Changed to Zosyn ( - ) by Pulmonology given increasing leukocytosis. Discharge on Levofloxacin per ID for 5 days - D Dr. Payne consulted, appreciate recommendations - first COVID-19 rapid test negative in ED 05/02/2020, repeat on 05/03/2020 negative - DVT US ordered by Pulmonology, negative #Chronic diastolic heart failure, has old TTE suggestive of severe diastolic dysfunction - on exam, does not appear volume overloaded and chest x-ray without obvious pulmonary edema - in light of possible infection above, will hold off on diuresis at this time - repeat TTE shows only mild diastolic dysfunction with normal EF #Glaucoma: unknown prior meds, off meds for 2 years. 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 I also coordinated with Stringed Instrument [employer]er Dr. Alicia, ID Dr. Payne and nursing staff Discharge Medications New Medications: Levofloxacin (Levofloxacin*) 500 Mg Tablet 500 MG ORAL DAILY for 5 Days, #5 TAB Amlodipine Besylate (Norvasc) 10 Mg Tablet 10 MG ORAL DAILY, #30 TAB Discharge Condition Upon Discharge: improving Discharge Vital Signs Last Vital Signs Date Time Temp Pulse Resp B/P (MAP) Pulse Ox O2 Delivery O2 Flow Rate FiO2 05/05/20 12:00 98.1 85 20 160/88 (112) 92 05/04/20 21:00 Nasal Cannula 2.0 Discharge Disposition Patient was discharged back to board and care Discharge Diagnoses: (1) Sepsis due to pneumonia (2) Chronic diastolic congestive heart failure (3) Community acquired pneumonia (4) Shortness of breath (5) HTN (hypertension) (6) Glaucoma (7) Duodenal diverticulum Discharge Instructions Discharge Instructions Follow up with: Primary care provider in 1 week Call MD/Return to Hospital if: you have fever again, worsening cough, worsening shortness of breath, pain Activity: resume normal activities Lukasz Alexis M.D. May 05, 2020 14:48
[2020-05-05 16:03] VITALS: BP 158/83
== END 2020-05-05 18:12 | disposition home or self-care (01) | DRG 720 ==
LOC: EDBD 15:38 → EMR 15:45 → 4E 18:32 → EDBEDREQ 20:33
DX: A41.9 Sepsis, unspecified organism (principal); J18.9 Pneumonia, unspecified organism; H54.8 Legal blindness, as defined in USA; I11.0 Hypertensive heart disease with heart failure; I50.32 Chronic diastolic (congestive) heart failure; I16.0 Hypertensive urgency; H40.9 Unspecified glaucoma; Z87.891 Personal history of nicotine dependence; K57.10 Diverticulosis of small intestine without perforation or abscess without bleeding
CPT/HCPCS: 36415; 71045; 71260; 80048; 80053; 80061; 81003; 83036; 83735; 83880; 84443; 84484; 85007; 85025; 86140; 86703; 87040; 87070; 87181; 87205; 93005; 93306; 93970; 96361; 96365; 96367; 96375; 96376; 99285; J7030; U0002